=== PATIENT | female | born 1950 | race Caucasian/White ===

== ENCOUNTER 2016-10-04 07:49 | Emergency (ER) | payer MEDICARE, OTHER ==
[~2016-10-04] VITALS: Ht 162.6 cm; Wt 61.2 kg
[2016-10-04] MEDS ORDERED: IPRATROPIU0.2 MG/1 M INH (08:28)
[2016-10-04] MEDS ORDERED: DIAZEPAM10 MG PO (08:28)
[2016-10-04] MEDS ORDERED: ATENOLOL50 MG PO (08:29)
[2016-10-04] MEDS ORDERED: BUPROPION HCL100 MG PO (08:29)
[2016-10-04] MEDS ORDERED: OMEPRAZOLE20 MG PO (08:29)
[2016-10-04] MEDS ORDERED: EZETIMIBE10 MG PO (08:30)
[2016-10-04] MEDS ORDERED: FOLIC ACID1 MG PO (08:30)
[2016-10-04] MEDS ORDERED: RANITIDINE HCL150 MG PO (08:30)
[2016-10-04] MEDS ORDERED: ANUSOL-HC25 MG PR (09:39)
== END 2016-10-04 10:06 | disposition home or self-care (01) ==
LOC: ED 07:49
DX: R10.30 Lower abdominal pain, unspecified (principal); K62.89 Other specified diseases of anus and rectum; Z88.1 Allergy status to other antibiotic agents; Z91.013 Allergy to seafood; Z79.899 Other long term (current) drug therapy
CPT/HCPCS: 74177; 80053; 81001; 85025; 96374; 96375; 99284; J1170; J2405; Q9967

== ENCOUNTER 2024-12-21 06:42 | Inpatient (IN) | payer MEDICARE, OTHER ==
[~2024-12-21] VITALS: Ht 162.6 cm; Wt 93.5 kg
[~2024-12-21 06:42] MED LIST: ADVAIR 250-501 EACH INH; ANUSOL-HC25 MG PR; ATENOLOL50 MG PO; BUPROPION HCL100 MG PO; COMBIVENT RESPIM4 GM INH; DIAZEPAM10 MG PO; ECOTRIN325 MG PO; EZETIMIBE10 MG PO; FOLIC ACID1 MG PO; INCRUSE ELLI62.5 MCG IH; IPRATROPIU0.2 MG/1 M INH; LEVALBUTEROL TA15 GM; MULTI VITAMIN1 EACH PO; OMEPRAZOLE20 MG PO; OSTERA TABLET1 EACH PO; RANITIDINE HCL150 MG PO; TORSEMIDE5 MG PO; TRELEGY ELLIPT1 EACH INH
[2024-12-21] MEDS ORDERED: ALBUTEROL/IPRATROPIUM 3 ML NEB INH ONE ×2 (07:00→08:15)
[2024-12-21] MEDS ORDERED: LORazepam 2 MG/ML VIAL IV ONE ×2 (07:15→08:00)
[2024-12-21 07:32] LABS: BASOPHILS 0.7 % (0.1-1.2); EOSINOPHILS 0.7 % (0.7-5.8); LYMPHOCYTES 22.7 % (19.3-51.7); MCH 30.3 PG (25.6-32.2); MCHC 32.2 g/dL (32.2-35.5); MCV 94.1 fL (79.4-94.8); MONOCYTES 7.1 % (4.7-12.5); NEUTROPHILS 68.2 % (34.0-71.1); RBC 3.93 M/uL (3.93-5.22)
[2024-12-21 07:43] LABS: LACTIC ACID, BLOOD 2.2 mmol/L (0.4-2.0)
[2024-12-21] MEDS ORDERED: AZITHROMYCIN 500 MG in DEXTROSE 5% 250 ML IV ONE (07:45)
[2024-12-21 07:57] LABS: ALT (SGPT) 26.0 U/L (14-59); AST (SGOT) 22.0 U/L (15-37); GLOMERULAR FILTRATION RATE,EST 55.0 mL/min (>60); PROTEIN, TOTAL 7.4 g/dL (6.4-8.2); UREA NITROGEN 16.0 mg/dL (7-18)
[2024-12-21] MEDS ORDERED: SODIUM CHLORIDE 0.9% 1,000 ML IV PRN (08:15)
[2024-12-21] MEDS ORDERED: PANTOPRAZOLE SODIUM 40 MG TABEC PO SCH (12:13)
[2024-12-21] MEDS ORDERED: LACTATED RINGER'S 1,000 ML IV SCH (12:15)
[2024-12-21] MEDS ORDERED: ACETAMINOPHEN 325 MG TAB PO PRN (12:15)
--- NOTE | 2024-12-21 12:40 | NUR ---
PATIENT ARRIVED TO DEPARTMENT VIA STRETCHER. PATIENT ON 5L OXYMASK. PATIENT NOTED TO HAVE INCREASED WOB AND STATES "I CANNOT BREATHE". THIS RN, RT, AND CCU STAFF IN ROOM TO ASSIST PATIENT OVER TO HOSPITAL BED AND PATIENT PLACED ON BIPAP. PATIENT TOLERATING BIPAP WELL. THIS RN AND ONEYDA RN REMAIN IN ROOM. PATIENTS LAMONT PRESENT IN ROOM
--- NOTE | 2024-12-21 12:54 | NUR ---
HANDOFF REPORT FROM DENYS PARHAM. ALL QUESTIONS ANSWERED. PATIENT SITTING UP IN BED, BIPAP IN PLACE. SPO2 98%. BIPAP SETTINGS PER RT. AT BEDSIDE
[2024-12-21 13:13] VITALS: BP 146/81
[2024-12-21] MEDS ORDERED: D3-200050 MCG PO (13:29)
[2024-12-21] MEDS ORDERED: BIOTIN5 MG PO (13:29)
[2024-12-21] MEDS ORDERED: TYLENOL325 MG PO (13:30)
--- NOTE | 2024-12-21 13:30 | NUR ---
PATIENT ASSESSMENT COMPLETE. PATIENT ALERT AND ORIENTED. HR 90'S-100'S, NSR TO ST. PATIENT NOW ON 5 L OXYMASK. PATIENT NOTED TO BE TACHYPNEIC AND BUT WOB HAS IMPROVED AFTER BIPAP EVIDENCED BY EVEN RESPIRATIONS AND NO USE OF ACCESSORY MUSCLES. BOWEL TONES ACTIVE, PATIENT STATES LAST BM WAS ABOUT 4 DAYS AGO. PATIENT STATES CHRONIC NUMBNESS AND TINGLING IN BILATERAL TOES. SKIN NOTED TO BE DRY. L. AC AND R. AC IV SITES INTACT AND WNL. VITAL SIGNS STABLE. PATIENT SITTING UP IN BED. NO EVIDENCE OF ACUTE DISTRESS NOTED. PATIENT REQUESTS TO REMAIN ON OXYMASK. PATIENT ABLE TO TALK AND FORM COMPLETE SENTENCES. THIS RN REMAINS IN ROOM
--- NOTE | 2024-12-21 14:07 | NUR ---
PATIENT SITTING UP IN BED. RR EVEN AND UNLABORED. SPO2 97% ON 5 L NC. IVF INFUSING PER EMAR. PATIENT EATING MEAL. NO EVIDENCE OF ACUTE DISTRESS NOTED, PATIENT UPDATED ON POC. CALL LIGHT IN REACH.
--- NOTE | 2024-12-21 15:00 | NUR ---
THIS RN AND DENYS JONES IN ROOM. PATIENT ASSISTED ONTO BEDPAN. WHILE ASSISTING ONTO BEDPAN, PATIENTS WOB INCREASED. PATIENT PLACED ON BIPAP AND SAT UP IN HIGH FOWLERS. THIS RN AND ROBERT RN REMAIN IN ROOM
--- NOTE | 2024-12-21 15:12 | NUR ---
INTO ROOM TO ANSWER CALL LIGHT. PT NEEDING TO HAVE BOWEL MOVEMENT. PT ABLE TO ROLL SELF IN BED SOME, BED BURKETT PLACED. PT BEGAN REPORTING SHOB WITH MOVEMENT, PLACED BACK ON BIPAP. PT TOLERATING WELL, 95%. BED BURKETT REMOVED, PT HAD SMALL AMOUNT OF BROWN SOFT BM. NEFTALI-CARE COMPLETED AND CLEAN BRIEF PLACED. PT SITTING UP IN BED, CALL LIGHT IN REACH. AT BEDSIDE
--- NOTE | 2024-12-21 15:18 | NUR ---
PATIENT REMAINS ON BIPAP. PATIENT ABLE TO HAVE X1 SMALL SOFT BM AND X1 UNMEASURED VOID THAT APPEARS CLEAR AND YELLOW. NEFTALI CARE COMPLETE. PUREWICK, BRIEF, AND REGINA PAD PLACED. PATIENT REPOSITIONED IN BED AND PLACED IN SEMI FOWLERS. PATIENT UPDATED ON POC. AT BEDSIDE. REST PROMOTED. CALL LIGHT IN REACH
[2024-12-21 15:30] VITALS: BP 164/72
[2024-12-21 16:00] VITALS: BP 116/93
[2024-12-21] MEDS ORDERED: ALBUTEROL SULFATE 0.083% 3 ML VIAL INH PRN (16:30)
--- NOTE | 2024-12-21 17:45 | NUR ---
THIS RN IN ROOM. PATIENT BEGINS TO HAVE COUGHING FIT. PATIENT SAT UP IN HIGH FOWLERS. THIS RN REMAINS WITH PATIENT. PATIENT PRODUCES THICK SECRETIONS WITH NO EVIDENCE OF EMESIS. PATIENT STATES THAT A "SPECK OF SOME FOOD" MADE HER COUGH START. THIS RN AND ONEYDA MCFARLANE AT BEDSIDE. AFTER SECRETIONS ARE CLEARED, PATIENT PLACED ON BIPAP AT 40% FIO2. SPO2 NOW 97%. THIS RN REMAINS AT BEDSIDE.
[2024-12-21 18:00] VITALS: BP 176/70
[2024-12-21] MEDS ORDERED: GUAIFENESIN/DEXTROMETHORPHAN 5 ML SYRUP PO PRN (18:00)
--- NOTE | 2024-12-21 18:04 | NUR ---
THIS RN REMAINS IN ROOM. DENYS CALL IN ROOM. PATIENT REMAINS ON BIPAP AT 30% FIO2, SPO2 95%. PATIENT NPO AT THIS TIME PER DR. JACKSON VERBAL ORDER. PATIENT AND PATIENT UPDATED ON POC. PATIENT VERBALIZES UNDERSTANDING.
--- NOTE | 2024-12-21 18:45 | NUR ---
PATIENT MOVED TO CCU RM 130 D/T BEING PLACED ON PRECAUTIONS FOR TB R/O. PATIENT NOTIFIED AND PRESENT IN ROOM AT THIS TIME. ALL BELONGINGS MOVED WITH PATIENT. VITAL SIGNS STABLE. NO EVIDENCE OF ACUTE DISTRESS.
--- NOTE | 2024-12-21 19:08 | NUR ---
PATIENT RESTING IN BED. PATIENT ON BIPAP. NO EVIDENCE OF ACUTE DISTRESS NOTED. CALL LIGHT IN REACH, AT BEDSIDE
[2024-12-21] MEDS ORDERED: ARFORMOTEROL TARTRATE 15 MCG/2 ML VIAL INH SCH (20:00)
[2024-12-21] MEDS ORDERED: IPRATROPIUM BROMIDE 2.5 ML VIAL INH SCH (20:00)
[2024-12-21] MEDS ORDERED: BUDESONIDE 0.5 MG/2 ML VIAL INH SCH (20:00)
[2024-12-21 20:15] LABS: CORONAVIRUS COVID-19 AG NEGATIVE (NEGATIVE)
[2024-12-21 20:18] VITALS: BP 111/78
[2024-12-21] MEDS ORDERED: MELATONIN 3 MG TAB PO PRN (21:00)
[2024-12-21] MEDS ORDERED: ENOXAPARIN SODIUM 40 MG/0.4 ML SYR SUB-Q SCH (21:00)
[2024-12-21] MEDS ORDERED: LORazepam 2 MG/ML VIAL IV PRN (21:15)
[2024-12-21] MEDS ORDERED: GUAIFENESIN/CODEINE 5 ML UDC PO PRN (21:15)
[2024-12-21 22:38] VITALS: BP 165/62
--- NOTE | 2024-12-21 23:33 | NUR ---
CALLED TO UPDATE AND REQUEST NEW ORDERS. PATIENT IS VERY ANXIOUS ABOUT SHORTNESS OF BREATH AND BIPAP, ALSO REPORTS PAIN AT ABDOMEN AND CHEST RIBS/MUSCLES FROM COUGHING. NEW ORDERS RECEIVED, SEE EMAR.
[2024-12-22] VITALS (9 sets, daily range): BP systolic 113–153; BP diastolic 57–99
--- NOTE | 2024-12-22 05:18 | NUR ---
PATIENT ALERT AND ORIENTED. SHE WANTS THE BIPAP OFF FOR A BREAK, ONCE OFF, SEVERE ANXIETY SYMPTOMS, TACHYPNIC, GRIPPING THE BED RAILS AND PULLING HERSELF FORWARD, EYES WIDE OPEN. SHE SAID SHE HAS NOT FELT THIS ANXIOUS SINCE SHE FIRST CAME TO THE HOSPITAL. ATIVAN PRN ADMINISTERED FOR ANXIETY. DURING SEVERE ANXIETY OXYGEN SATURATION DROPPED LOW 79% ON 5L N.C., WITH RN INSTRUCTING AT BEDSIDE TO ASSOCIATE ACCOUNT EXECUTIVE SLOW DEEP BREATHS, PATIENT RETURNED TO 93% OXYGEN SATURATION. ONCE ATIVAN ADMINISTERED OXYGEN SATURATION 97%.
[2024-12-22 05:46] LABS: BASOPHILS 0.2 % (0.1-1.2); EOSINOPHILS 0 % (0.7-5.8); LYMPHOCYTES 10.9 % (19.3-51.7); MCH 30.5 PG (25.6-32.2); MCHC 32.5 g/dL (32.2-35.5); MCV 93.9 fL (79.4-94.8); MONOCYTES 5.0 % (4.7-12.5); NEUTROPHILS 83.1 % (34.0-71.1); RBC 3.44 M/uL (3.93-5.22)
--- NOTE | 2024-12-22 06:03 | NUR ---
ROUNDING THIS AM TO CHANGE PURWICK AND CHANGE DEPENDS, WHITE CHUCKS AND LINEN/GOWN. PATIENT HAS GOOD BED MOBILITY, ABLE TO TURN SIDE TO SIDE, PATIENT HAD URINE INCONT. STOOL INCONT., SHE TOLERATED ACTIVITY WELL. ANXIETY WELL MANAGED AT THIS TIME. CURRENTLY 96% OXYGEN SATURATION ON 4L N.C.
[2024-12-22 06:13] LABS: ALT (SGPT) 26.0 U/L (14-59); AST (SGOT) 25.0 U/L (15-37); GLOMERULAR FILTRATION RATE,EST 80.0 mL/min (>60); PROTEIN, TOTAL 6.8 g/dL (6.4-8.2); UREA NITROGEN 11.0 mg/dL (7-18)
--- NOTE | 2024-12-22 07:40 | EKG ---
[facility] [address] [facility] [place] [address] Signed Sinus tachycardia Nonspecific ST and T wave abnormality Abnormal ECG When compared with ECG of 03-APR-2022 17:03, Vent. rate has increased BY 45 BPM Confirmed by Anneliese Jackson DO ([id number]) on 12/22/2024 7:40:38 AM Electronically Signed By: ANNELIESE JACKSON DO 12/22/24 0740 PATIENT NAME: LISETH TEJADA Electrocardiogram DATE OF : 48 PHYSICIAN: ANNELIESE JACKSON DO REPORT #: [id number] REPORT IS CONFIDENTIAL AND NOT TO BE RELEASED WITHOUT AUTHORIZATION
--- NOTE | 2024-12-22 07:41 | EKG ---
[facility] [address] [facility] [place] [address] \T\ T wave abnormality, consider anterior ischemia Abnormal ECG When compared with ECG of 21-DEC-2024 06:48, (Unconfirmed) T wave inversion now evident in Anterior leads Confirmed by Jacinto Jackson DO ([id number]) on 12/22/2024 7:40:53 AM Electronically Signed By: JACINTO JACKSON DO 12/22/24 0741 PATIENT NAME: MARIPOSA ALLENLISETH GARCÍA Electrocardiogram DATE OF : 48 PHYSICIAN: JACINTO JACKSON DO REPORT #: [id number] REPORT IS CONFIDENTIAL AND NOT TO BE RELEASED WITHOUT AUTHORIZATION
[2024-12-22] MEDS ORDERED: ALBUTEROL/IPRATROPIUM 3 ML NEB INH SCH (08:00)
[2024-12-22] MEDS ORDERED: ASPIRIN 325 MG TAB PO SCH (08:00)
[2024-12-22] MEDS ORDERED: AZITHROMYCIN 250 MG TAB PO SCH (09:00)
[2024-12-22] MEDS ORDERED: TORSEMIDE 5 MG TAB PO SCH (09:00)
[2024-12-22] MEDS ORDERED: predniSONE 20 MG TAB PO SCH (09:00)
--- NOTE | 2024-12-22 09:30 | NUR ---
PHYSICAL THERAPY GOT PT UP TO THE CHAIR THIS AM. PT WAS ABLE TO BRUSH HER TEETH AND TAKE HER AM MEDICATIONS WITH SIPS OF WATER. PT REMAINS NPO AT THIS TIME. PTS HAS BEEN INTO SEE PT THIS MORNING AND THEN LEFT FOR WORK.
--- NOTE | 2024-12-22 11:15 | NUR ---
PT BACK TO BED, CPAP INPLACE BEFORE PT OUT OF THE CHAIR, PT HAS A REASON WHY SHE CAN'T DO THING IN HER CARE. "NOT ENOUGH OXYGEN, NOT ENOUGH HELP AT HOME, JUST DONT FEEL LIKE IT" PT HAS PUR WICK INPLACE.
--- NOTE | 2024-12-22 11:40 | NUR ---
Spoke with pt and spouse. Pt lives in a home with few steps. She uses a walker and wc. Pt uses 02 up to 5l, currently on 4 L this am. Spouse does the HH tasks shopping, cooking. Pt plans on dc to home. Denies financial or safety concerns. Pt waiting on labs.
[2024-12-22] MEDS ORDERED: PHARMACY RENAL DOSE ADJUSTMENT 1 DOSE MISC PO SCH (12:00)
--- NOTE | 2024-12-22 13:54 | NUR ---
PT IN BED WITH 4L'S NC INPLACE. AT BEDSIDE, PT PUR WICK CHANGED AT THIS TIME AND ATTENDS. HAD 200MLS CONCERATED URINE AND A WET ATTENDS. PT BUTT SKIN IS PEELING, CLAUDIA CREAM APPLIED. PT IS HUNGERY, SOMA JELLOW AND ICE WATER GIVEN. PT WAS NPO DUE TO SOB WHICH HAS IMPROVED AT THIS TIME. EXPLAINED TO PT TO GO SLOW AND TAKE HER TIME.
--- NOTE | 2024-12-22 14:14 | NUR ---
UR CLINICAL REVIEW: 2 MN FOR [facility]ERSALUS-[facility] MEETS INPT FOR SEPSIS SECONDARY TO PNEUMONIA WITH GREATER O2 DEMAND, NEED FOR IV ABX AND SERIAL MONITORING. MEDICARE INPT 12/21/24 @ 1213 ORDER MATCHES REG NO AUTH REQUIRED PER MEDICARE GUIDELINES DISCHARGE TO HOME WHEN STABLE
[2024-12-22] MEDS ORDERED: FOLIC ACID1 MG PO (16:33)
[2024-12-22] MEDS ORDERED: NITROGLYCERIN0.4 MG SL (17:32)
[2024-12-22] MEDS ORDERED: PREDNISONE10 MG PO (17:32)
--- NOTE | 2024-12-22 17:39 | NUR ---
PT ATE FAIR AT THIS TIME. REMAINS IN THE ROOM AND DOES NOT WEAR A MASK.
[2024-12-22] MEDS ORDERED: ANTIFUNGAL113 GM TOP (17:43)
--- NOTE | 2024-12-22 17:44 | NUR ---
medications reconciled PCP notes
--- NOTE | 2024-12-22 18:37 | NUR ---
PURE WICK CHANGED, ATTEND CHANGED ALONG WITH THE CHUCKS CHNAGED. PT IS ABLE TO LIFT HER BOTTON AND TURN FROM SIDE TO SIDE.
[2024-12-22] MEDS ORDERED: BUDESONIDE 0.5 MG/2 ML VIAL INH SCH (20:00)
--- NOTE | 2024-12-22 20:21 | NUR ---
PATIENT SITTING UP ALERT AND ORIENTED IN BED. NO DISTRESS NOTED, ON N.C. AT 5L O2
--- NOTE | 2024-12-22 20:30 | NUR ---
PATIENT RESTING IN BED ALERT AND ORIENTED, THIS RN ROUNDING TO DO ASSESSMENT AND HS MEDICATIONS. PATIENT REPORTS SHE DOES NOT FEEL GOOD, THIS RN ASSURED HER, SHE IS CLINICALLY SHOWING SOME IMPROVEMENT, WITH WORK OF BREATHING AND OXYGEN DEMANDS COMPARED TO WHEN ADMITTED. SHE REPORT SHE FEELS ANXIOUS ABOUT THE BIPAP HAS SOME RIB AND MUSCLE PAIN FROM ALL THE COUGHING, THIS RN DISCUSSED PLAN OF CARE FOR TONIGHT AND HAVE PRN MEDICATIONS TO MANAGE ANXIETY AND PAIN.
[2024-12-23] VITALS (17 sets, daily range): BP systolic 111–149; BP diastolic 49–98
--- NOTE | 2024-12-23 00:54 | NUR ---
PATIENT RESTING QUIETLY IN BED, BIPAP ON, SHE IS TOLERATING WELL. ASSESSMENT COMPLETE. CALL LIGHT IN REACH.
[2024-12-23 05:35] LABS: BASOPHILS 0.1 % (0.1-1.2); EOSINOPHILS 0 % (0.7-5.8); LYMPHOCYTES 9.6 % (19.3-51.7); MCH 30.1 PG (25.6-32.2); MCHC 31.5 g/dL (32.2-35.5); MCV 95.6 fL (79.4-94.8); MONOCYTES 6.7 % (4.7-12.5); NEUTROPHILS 82.8 % (34.0-71.1); RBC 3.19 M/uL (3.93-5.22)
[2024-12-23 05:51] LABS: ALT (SGPT) 31.0 U/L (14-59); AST (SGOT) 28.0 U/L (15-37); GLOMERULAR FILTRATION RATE,EST 84.0 mL/min (>60); PROTEIN, TOTAL 6.3 g/dL (6.4-8.2); UREA NITROGEN 19.0 mg/dL (7-18)
--- NOTE | 2024-12-23 05:54 | NUR ---
PATIENT IS SITTING UP IN BED, USING HER CELL PHONE
--- NOTE | 2024-12-23 06:25 | NUR ---
PATIENT ALERT AND ORIENTED, PATIENT CONTINUES TO HAVE INTERMITTEN COUGHING, NON-PRODUCTIVE, SHE REPORTS MUSCLE PAIN ABD AND RIBS FROM THE COUGHING, ROBITUSSIN AC ADMINISTERED AT THIS TIME PRN. CHANGED HER PURWICK AND EMPTIED SUCTION CANISTER FOR 200ML. WARM BLANKET PROVIDED, FRESH ICE WATER, NO FURTHER REQUESTS AT THIS TIME, CALL LIGHT IN REACH.
[2024-12-23] MEDS ORDERED: NITROGLYCERIN 0.4 MG SUBL ONE (07:13)
--- NOTE | 2024-12-23 07:20 | NUR ---
PT C/O CP STAT EGK AND NITRO SL GIVEN ASEE VS FLOWSHEET 0721 CP 1/10 BACK PAIN CRAMPS LIKE PAIN AND GOES ACROSS HER BACK AND HEAVYNESS ON HER CHEST 0725 LAB SAMPLE OBTAINED CP 1/10 LEAD WEIGHT HEAVYNESS ON CHEST 0729 EDEMA 1= IN BILT LEGS, PASTORAL CARE PRESENT 0733 325 ASA GIVEN PT CHEWED IT AT THIS TIME 0/10 CP PAIN BUT HEAVYNESS PRESENT AND BACK PAIN 2 TO 3 0736 1 NITRO SL GIVEN PER DR DE LOS SANTOS 0740 HEAVNESS/BACK PAIN HAS DECREASED BUT STILL THERE AND HEART RATE INCREASED R/T NEB TX
[2024-12-23] MEDS ORDERED: NITROGLYCERIN 0.4 MG SUBL SL PRN (07:30)
--- NOTE | 2024-12-23 07:52 | NUR ---
dr caldwell, pt contioues to have back pain "still not normal" and chest heaveyness see flow sheet for VS [address] Ferrer changed VS to Q15 0822 Pt pain in left breast "hard to tell" 03/05 chest pain. 0830 all am medications given and PT will be only allow sips till it is decided if transfered to a high level of care for cardio. Pt and understand all the information that has been given.
[2024-12-23] MEDS ORDERED: IPRATROPIUM BROMIDE 2.5 ML VIAL INH SCH (08:00)
--- NOTE | 2024-12-23 08:16 | NUR ---
CALL TO DR DE LOS SANTOS TO NOTIFY OF TROPONIN INCREASE FROM 12 TO 14, NEW ORDER TO REPEAT LAB IN 2 HOURS AT 930 AM.
--- NOTE | 2024-12-23 08:41 | NUR ---
PT C/O PAIN IN THE LT LOWER IV SITE, CHANGED ABX TO LT AC SITE, BOTH FLUSH WELL AND SHE FEELS THAT IT IS COLD WHEN FLUSHING WITH SALINE. SO CHANGED ABX TO THE LT AC AREA IV.
[2024-12-23] MEDS ORDERED: MICONAZOLE NITRATE 1 EA BTL TOP SCH (09:00)
--- NOTE | 2024-12-23 10:04 | NUR ---
DR DE LOS SANTOS NOTIFIED OF L Tt level INCREASED TO 15.8 AT THIS TIME. PT VERY VAGE ABOUT CP AND BACK PAIN. STILL HAS CP AND BACK PAIN BUT NOT BAD. DID NOT GIVEN IT A NUMBER AT THIS TIME ON SCALE 0/10. PT MAKES EXCUSES ABOUT HER HEALTH AND WHY SHE IS IN THE SAME SHE IS IN AT THIS TIME. "I DON'T LIKE TO TAKE STEROIDS IT MAKES MY FACE FAT" "I DONT LIKE TO COMPLETE MY NEB TX'S ALL THE TIME DUE TO THEY MAKE ME COUGH"
--- NOTE | 2024-12-23 10:08 | NUR ---
PT TALKING ON PHONE, DID NOT HANG UP WHEN SHE WAS ASKING QUESTIONS AND TALKING TO BOTH OF US AT THE SAME TIME.
--- NOTE | 2024-12-23 10:19 | NUR ---
pt appears to be sleeping eyes are slosed resp even and unlaborded at this time spo2 98% on 4l's nc. heart rate 78 at this time.
[2024-12-23] MEDS ORDERED: ISOSORBIDE MONONITRATE 30 MG TABCR PO SCH (11:00)
--- NOTE | 2024-12-23 11:15 | NUR ---
PRN NEB TX GIVEN DUE TO INCREASED SOB WITH COUGHING. PT SITTING UP IN THE CHAIR. ALSO GAVE COUGH ROBITIUSSION AC. PT REMAINS ON O2 AT 4L'S NC.
--- NOTE | 2024-12-23 11:40 | NUR ---
In to speak with Lorri. She is on the phone. She stopped her visit, I asked if she has any needs and she denies. States she has books and magazines she has not looked at. No needs.
--- NOTE | 2024-12-23 12:18 | NUR ---
PT IN ROOM CAME OUT AND ASKED WHEN PT CAN GO BACK TO BED, EXPLAINED AFTER SHE EATS LUNCH.
--- NOTE | 2024-12-23 13:19 | NUR ---
PT BACK TO BED AT THIS TIME, DID WELL WITH PIVOT TRANSFER WITH FFW. SPO2 DECREASED TO 86% ON 4L'S NC. PT SAT AT THE EDGE OF THE BED TO RECOVER AND DEEP BREATH THROUGH NOSE AND OUT THROUGH HER MOUTH. PT DID WELL. AFTER SPO2 UP TO 96% ON 4L'S NC SUNG PT LEGS INTO THE BED AND PLACED PURE WICK. PT URINE REMAINS YELLOW IN COLOR. PT ASKING QUESTION ON ABOUT GOING HOME AND WHEN THAT WOULD HAPPEN? EXPLAINED TO PT THAT WE WILL SEE WHAT HER 15:30 Tt LABS SHOW AND GO FROM THERE. PT WANTS TO GO HOME AND WOULD HOPE TO BE HOME BY THIS WEEKEND. 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
--- NOTE | 2024-12-23 14:13 | NUR ---
DC REVIEW: CONTINUE WITH NEED FOR BIPAP AT TIMES, R/O TB, IV ANTIBIOTICS, STEROIDS, CARDIAC MONITORING ADD: [place], FURTHER TREATMENT NEEDED CARDIOLOGY CONSULTED FOR CHEST PAIN THIS AM.
--- NOTE | 2024-12-23 14:36 | NUR ---
PT APPEARS TO BE SLEEPING AT THIS TIME IN BED. HOB AT 60% AT THIS TIME SPO2 100% ON 4L'S. RESP EVEN AND UNLABORED.
--- NOTE | 2024-12-23 15:20 | NUR ---
PT AWAKE TAKING PO WELL, PT C/O PAIN IN HER CHEST 04/05 WITH CONTIOUED HEAVEYNESS IN HER CHEST AND BACK. BUT PT CONTIOUES TO PLAY IT NO BIG DEAL. PT STATES 'I REALEY WANT TO GO HOME FOR THE WEEKEND." EXPLAINED AFTER THE NEXT LAB SAMKARSTEN WE CAN MAKE A BETTER PLAN. PT ALSO C/O FEELING LIKE THEIR ARE PEOPLE WORKING ON HER. EXPLAIND THAT HER BED MOVES AT TIMES TO KEEP HER PRESSURE TO NOT RECEIVE SORE ON HER SKIN. AND THAT THEIR ARE DIFFERENT NOISES IN THE UNIT.
--- NOTE | 2024-12-23 15:29 | NUR ---
LAB HERE TO OBTAIN BLOOD SAMPLE
--- NOTE | 2024-12-23 16:14 | NUR ---
PRKalyn PUENTE TX GIVEN AT THIS TIME, PT C/O SOB AND THEN WAS WANTING TO KNOW WHAT WAS GOING TO HAPPEN NEXT. ASK PT WHAT SHE MENT BE THIS, WELL AM I GOING HOME NOW OR DO I STAY HERE? [id number] THAT SHE WOULD MOST LIKLEY STAY HERE TILL SHE GOES HOME. UNLESS THE DOCTOR DECIDES ON SOMETHING DIFFERENT.
--- NOTE | 2024-12-23 16:54 | NUR ---
PT RETURNED THIS EVENING, PT SET UP FOR DINNER IN BED, CALL LIGHT WITHIN REACH. WHEN NEB TX FINISHED PT TOOK OFF. WITH ACTIVITY IN BED TRYING TO EAT SPO2 DECREASES TO 88-89% ON 4L'S. BUT ALSO PT IS MOVING HAND THAT SPO2 MONITOR IS ON.
--- NOTE | 2024-12-23 17:24 | NUR ---
PT ASKED FOR ICE CREAM OBTAIN A CUP OF ICE CREAM FOR PT. SHE IS STILL WORKING ON DINNER AT THIS TIME ALSO.
--- NOTE | 2024-12-23 18:27 | NUR ---
PT ATTENDS CHANGED AND PURE WICK DRAINED 150MLS YELLOW URINE. PT IS ABLE TO MOVED ABOUT THE BED. BUT SHE DID DECREASE HER SPO2 TO 83% AND TOOK A GOOD 5 MINUTES TO RECOVER AT THIS TIME, BUT ALSO SHE TALKED THE WHOLE TIME AND WHEN ASKED TO JUST BREATH SHE KEEP TALKING. SHE DID RECOVER, BUT TOOK LONGER WHEN TALKING. PT C/O ITCHING AND PAIN IF HER FOLDS IN HER NEFTALI AREA, PLACED BARRIER CREAM IN THE FOLDS FOR PT AT THIS TIME.
--- NOTE | 2024-12-23 20:30 | NUR ---
PATIENT SITTING UPRIGHT IN BED. VS STABLE. DENIED ANY NEEDS OR CONCERNS. CALL LIGHT IN REACH.
--- NOTE | 2024-12-23 21:22 | NUR ---
PATIENT PROVIDED SCHEDULED MEDS. PATIENT IS AAOX4. DENIED FEELING SOB. VS STABLE. PATIENT REPORTS RIB PAIN AND MUSCLE SORENESS FROM COUGHING. PATIENT REQUESTING A "MUSCLE RELAXER". DISCUSSED WITH AND RECEIVED ORDERS FOR PRN FLEXARIL; SEE EMAR. VERIFIED VIA REPEAT BACK METHOD.
[2024-12-23] MEDS ORDERED: CYCLOBENZAPRINE HCL 10 MG TAB PO PRN (21:30)
--- NOTE | 2024-12-23 22:15 | NUR ---
PATIENT REQUESTING AN DUPDATE ON HER VS; WHICH WAS PROVIDED. TOLERATING 5L NC. VS STABLE. PATIENT DENIED FEELING SOB OR WANTING A NEB TREATMENT. PATIENT ALSO DOES NOT PLAN TO WEAR BIPAP TONIGHT. REPORTS SOME IMPROVEMENT RIB PAIN. LIGHTS DIMMED PER REQUEST. CALL LIGHT IN REACH.
[2024-12-24] VITALS (18 sets, daily range): BP systolic 137–172; BP diastolic 59–94
--- NOTE | 2024-12-24 00:15 | NUR ---
PATIENT APPEARS RESTFUL. TOLERATING 5L NC. LUNG SOUNDS UNCHANGED. CALL LIGHT IN REACH.
--- NOTE | 2024-12-24 03:00 | NUR ---
PATIENT DENIES FEELING SOB. VS STABLE. CALL LIGHT IN REACH.
[2024-12-24 05:30] LABS: BASOPHILS 0.3 % (0.1-1.2); EOSINOPHILS 0.1 % (0.7-5.8); LYMPHOCYTES 20.0 % (19.3-51.7); MCH 30.3 PG (25.6-32.2); MCHC 32.0 g/dL (32.2-35.5); MCV 94.7 fL (79.4-94.8); MONOCYTES 8.5 % (4.7-12.5); NEUTROPHILS 68.9 % (34.0-71.1); RBC 3.40 M/uL (3.93-5.22)
[2024-12-24 05:34] LABS: QUANTIFERON MITOGEN MINUS NIL 9.99 IU/mL (()); QUANTIFERON NIL 0.01 IU/mL (()); QUANTIFERON PLUS TB1 MINUS NIL 0.00 IU/mL (<=0.34); QUANTIFERON PLUS TB2 MINUS NIL 0.00 IU/mL (<=0.34); QUANTIFERON TB GOLD PLUS Negative (Negative)
[2024-12-24 05:45] LABS: ALT (SGPT) 33.0 U/L (14-59); AST (SGOT) 27.0 U/L (15-37); GLOMERULAR FILTRATION RATE,EST 66.0 mL/min (>60); PROTEIN, TOTAL 6.1 g/dL (6.4-8.2); UREA NITROGEN 24.0 mg/dL (7-18)
--- NOTE | 2024-12-24 06:00 | NUR ---
patient attends and pure wic changed at this time. patient toleraitng 5L nc. denied feeling sob. denied wanting a neb treatment. patient able to assist in repositioning herself and lifting hips to be changed. patient encouraged to attempt to use bsc; patient reports she is unable to get up to the bsc at this time. fresh ice water provided. call light in reach.
--- NOTE | 2024-12-24 06:01 | EKG ---
[facility] [address] [facility] [place], [place] [address] S[address] Normal sinus rhythm [address] \T\ T wave abnormality, consider anterior ischemia Abnormal ECG When compared with ECG of 21-DEC-2024 08:00, No significant change was found Confirmed by KVNG DE LOS SANTOS MD ([id number]) on 12/24/2024 6:01:07 AM Electronically Signed By: KVNG DE LOS SANTOS 12/24/24 0601 PATIENT NAME: LISETH TEJADA Electrocardiogram DATE OF : 48 PHYSICIAN: KVNG DE LOS SANTOS REPORT #: [id number] REPORT IS CONFIDENTIAL AND NOT TO BE RELEASED WITHOUT AUTHORIZATION
--- NOTE | 2024-12-24 08:24 | NUR ---
REPORT RECEIVED FROM DENYS JONES. pt SITTING UP IN BED, 5L OXYGEN BY NC IN PLACE. pt ANXIOUS REGARDING PLAN OF CARE. EDUCATED ON PLAN OF CARE, SCHEDULED AND PRN MEDICATIONS, PT, ACTIVITY INCREASE FOR DAY. pt AGREEABLE. DENIES UP TO CHAIR AT THIS TIME. BREAKFAST ON TRAY TABLE. CALL LIGHT IN REACH.
--- NOTE | 2024-12-24 09:00 | NUR ---
PATIENT IS LAYING IN BED. PATIENT WAS PROVIDED WITH A WARM WASHCLOTH. CALL LIGHT IS WITHIN REACH AND NO FURTHER NEEDS AT THIS TIME.
--- NOTE | 2024-12-24 09:41 | NUR ---
pt AWAKE RESTING IN BED. ASSESSMENT COMPLETE. LUNG SOUNDS CLEAR DIMINISHED THROUGHOUT, SOME COARSENESS AUSCULTATED MOHAMUD. 5L OXYGEN BY NC IN PLACE. IV SITE IN LEFT FA INFILTRATED, DC'D WNL. IV ANTIBIOTIC INFUSING L AC. pt IN ROOM WORKING WITH pt. 1PA WITH FWW.
--- NOTE | 2024-12-24 09:56 | NUR ---
GISSEL PT, IN ROOM WITH PATIENT. CURRENTLY RECOMMEND HOME HEALTH AND POTENTIALLY CARDIOPULMONARY REHAB FOR PATIENT. PATIENT IS OPEN TO HOME HEALTH. WILL SEND REFERRAL. PATIENT CHOICES PROVIDED. [facility] TO BE USED SO PATIENT CAN RECIEVE ALL THERAPIES NEEDED. WILL SEND REFERRAL WHEN PATIENT IS DISCHARGED.
--- NOTE | 2024-12-24 10:19 | NUR ---
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 ANXIOUS PULLING NGT OUT, CONGESTION. SWITCHED TO OXYMASK 6L, pt RECOVERS IN CHAIR AFTER AMBULATING TO RESTROOM DOOR 1P FWW WITH GAIT BELT. TITRATED BACK TO 5L OXYGEN BY OXYMASK, SPO2 WNL. HR UP TO 120-130S WITH AMBULATION. BACK IN CHAIR AT THIS TIME, LEGS ELEVATED. CALL LIGHT AND PERSONAL SUPPLIES WITHIN REACH.
--- NOTE | 2024-12-24 10:26 | NUR ---
AFTER WORKING FURTHER WITH PATIENT, PT RECOMMENDING SNF. IN TO DISCUSS SNF WITH PATIENT. SHE STATES SHE WILL NOT BE GOING TO A SNF. SHE STATES SHE FUNCTIONS BETTER AT HOME AND SHE IS WILLING TO DO HOME HEALTH INSTEAD.
--- NOTE | 2024-12-24 11:20 | NUR ---
pt ASSISTED FROM CHAIR SBA TO BSC FOR VOID AND LARGE FORMED SOFT BM. BACK TO BED 1PA FWW FOR LINE MANAGEMENT. GAIT STEADY. NEW ATTENDS ON. pt AGREEABLE TO HAVE ERIN CASTRO. ASSESSMENT COMPLETE. LUNG SOUNDS CLEAR THROUGHOUT ALL LEGS. 1+ EDEMA BLE, LEGS ELEVATED ON PILLOWS. CALL LIGHT AND PERSONAL SUPPLIES IN REACH. DENYS WALTON IN ROOM TO START NEW IV.
--- NOTE | 2024-12-24 11:51 | NUR ---
MD ROUNDING ON pt. UPDATED ON POSITIVE BLOOD CULTURES. NO NEW ORDERS RECEIVED.
--- NOTE | 2024-12-24 12:04 | NUR ---
STARTED NEW IV TO RIGHT WRIST, TOOK 3 ATTEMPTS, PT TOLERATED WELL. pT CONVERSANT, ALERT AND ORIENTED. OT NOW IN ROOM WORKING WITH PATIENT.
--- NOTE | 2024-12-24 12:35 | NUR ---
pt SITTING UP IN BED. LUNCH PROVIDED ON TRAY TABLE. OXYGEN SWITCHED TO 5L NC FOR pt TO EAT. SPO2 96%. CALL LIGHT IN REACH. IN ROOM.
--- NOTE | 2024-12-24 13:17 | NUR ---
REPORT RECEIVED FROM DENYS TALLEY. PATIENT IS LYING IN BED WITH HOB ELEVATED. PATIENT WITH EYES OPEN AND RESPIRATIONS ARE EVEN AND UNLABORED. PATIENT WITH THE NC IN PLACE. CALL LIGHT AND PERSONAL BELONGINGS ARE WITHIN REACH.
--- NOTE | 2024-12-24 14:14 | NUR ---
PATIENT IS LYING IN BED WITH HOB ELEVATED. PATIENT WITH EYES OPEN AND RESPIRATIONS ARE EVEN AND UNLABORED. NC IN PLACE. PATIENT IS LOOKING ON THEIR PHONE. PATIENT IS AT BEDSIDE. CALL LIGHT AND PERSONAL BELONGINGS ARE WITHIN REACH.
--- NOTE | 2024-12-24 15:44 | NUR ---
PATIENT ASSISTED OFF THE COMMODE AT THIS TIME WITH DENYS JIN. PATIENT VOIDED 350 ML YELLOW URINE. PATIENT IS NOW BACK IN BED ON 5 L NC. LUNCH TRAY REMOVED. HOB ELEVATED. PATIENT REMAINS AT BEDSIDE. PATIENT STATED NO FURTHER NEEDS AT THIS TIME. CALL LIGHT AND PERSONAL BELONGINGS ARE WITHIN REACH.
--- NOTE | 2024-12-24 16:16 | NUR ---
FULL ASSESSMENT COMPLETE AND DOCUMENTED IN THE CHART. PATIENT TURNED BACK TO 4L NC AFTER USING THE BEDSIDE COMMODE. PATIENT REPORTED PAIN 10/10 WHEN COUGHING. PATIENT HAD PRODUCTIVE COUGH OF THICK YELLOW SPUTUM. CARDIAC WITH NORMAL S1 AND S2. PATIENT IS REQUESTING FLEXERIL AND SOMETHING FOR COUGH. PATIENT REMAINS SITTING IN THE RECLINER AT BEDSIDE. PATIENT NAD FAMILY STATED NO FURTHER NEEDS AT THIST MARYJO. CALL LIGHT AND PERSONAL BELONGINGS ARE WITHIN REACH.
--- NOTE | 2024-12-24 17:15 | NUR ---
PATIENT IS LYING IN BED WITH HOB ELEVATED. PATIENT WITH EYES OPEN AND RESPIRATIONS ARE EVEN AND UNLABORED. NC IN PLACE. PATIENT IS EATING DINNER. CALL LIGHT AND PERSONAL BELONGINGS ARE WITHIN REACH.
--- NOTE | 2024-12-24 18:13 | NUR ---
VITAL SIGNS AND INTAKE/OUTPUT VALUES TAKEN AND DOCUMENTED IN THE CHART. PATIENT REPORTS HER PAIN HAS IMPROVED SINCE THE FLEXERIL AND THE ROBUTUSSIN. IV PUMP CLEARED OF INTAKE FLUIDS. DINNER TRAY REMOVED AT THIS TIME. FRESH ICE WATER PROVIDED. NC REMAINS IN PLACE ON 4 L NC. PATIENT STATED NO FURTHER NEEDS AT THIS TIME. CALL LIGHT AND PERSONAL BELONGINGS ARE WITHIN REACH.
--- NOTE | 2024-12-24 19:30 | NUR ---
REPORT RECEIVED FROM ARMANDO MCFARLANE.
--- NOTE | 2024-12-24 20:04 | NUR ---
LISETH (AKA: RUBIO) CAN USE THE CORNET +5 W/O DIFFICULTY. THE V60 BIPAP WAS DISCONTINUED. RUBOI STATES THAT SHE DOES HAVE A HOME NEBULIZER. RUBIO FEELS THAT THE BROVANA AND PULMICORT HELP HER BREATH BETTER THAN HER HOME INHALERS. SHE IS WONDERING IF SHE CAN BE DISCHARGED WITH A PRESCRIPTION FOR BROVANA AND PULMICORT. RT TOLD HER THAT IF SHE IS DISCHARGED WITH PRESCRIPTIONS FOR BROVANA AND PULMICORT, THE PRESCRIPTIONS WOULD ONLY BE FOR LIK 7 OR 14 DAYS...SHE WOULD NEED TO SEE HER PCM TO OBTAIN MORE REGULAR AND PERMANENNT PRESCRIPTIONS FROM HER PCM FOR BROVANA AND PULMICORT.
--- NOTE | 2024-12-24 20:52 | NUR ---
IN TO SEE PT.
--- NOTE | 2024-12-24 21:56 | NUR ---
HS CARE DONE, MEDS GIVEN
--- NOTE | 2024-12-24 22:21 | NUR ---
SVT NOTED ON MONITOR; HR 150'S SUSTAINED. PATIENT DENIED FEELING SOB OR CHEST PAIN. BP STABLE. CALL PLACED TO . EKG IN PROGRESS. MD TO SEE PATIENT.
[2024-12-24] MEDS ORDERED: METOPROLOL TARTRATE 5 MG/5 ML VIAL IV ONE ×3 (22:30→22:45)
--- NOTE | 2024-12-24 22:38 | NUR ---
IV LOPRESSOR GIVEN 5MG X2 PER MD VERBAL ORDER. IN ROOM. PATIENT BP STABLE. HR IMPROVED TO 140'S; SVT. EDUCATION PROVIDED TO PATIENT BY . PATIENT CONTINUES TO DENY CHEST PAIN OR SOB. TOLERATING 3L NC.
--- NOTE | 2024-12-24 22:45 | NUR ---
10MG IV LOPRESSOR GIVEN PER DR DE LOS SANTOS VERBAL ORDER, DR DE LOS SANTOS REMAINS AT BEDSIDE, HR REMAINS 140'S AFTER MEDICATION GIVEN, BPS REMAINS STEADY WELL.
--- NOTE | 2024-12-24 23:05 | NUR ---
15MG IV CARDIZEM GIVEN PER DR MAGLAI HOFFMAN WHO IS AT THE BEDSIDE. HR RATE DID DROP DOWN BRIEFLY, MONITOR LOOKED LIKE AFIB, THEN BACK UP TO 140'S.
[2024-12-24 23:10] LABS: GLOMERULAR FILTRATION RATE,EST 63.0 mL/min (>60); UREA NITROGEN 24.0 mg/dL (7-18)
--- NOTE | 2024-12-24 23:19 | NUR ---
CARDIZEM DRIP STARTED AT 10MG/HR PER DR MAGALI ORDER, HR CONTINUES TO BE 145-147.
[2024-12-25] VITALS (35 sets, daily range): BP systolic 111–161; BP diastolic 61–117
[2024-12-25] MEDS ORDERED: AMIODARONE/DEXTROSE 100 ML IV ONE (00:15)
[2024-12-25] MEDS ORDERED: AMIODARONE/DEXTROSE 200 ML IV ONE ×3 (00:15→06:05)
--- NOTE | 2024-12-25 00:30 | NUR ---
AMIODORONE DRIP STARTED PER EMAR WITH DR DE LOS SANTOS AT BEDSIDE. PTS HR HAD DROPPED WHILE HOOKING UP AMIO TUBING, SO HE ORDERED THE BOLUS OF AMIO TO BE CANCELLED.
--- NOTE | 2024-12-25 01:10 | NUR ---
RHYTHM CHANGE NOTED ON MONITOR, RATE DOWN TO 70'S, APPEARS TO BE AFLUTTER, RT CALLED FOR EKG TO CONFIRM. PT CONTINUES TO REST IN BED, DENIES CHEST PAIN, DOES STATE THAT SHE IS FEELING BETER.
--- NOTE | 2024-12-25 01:15 | NUR ---
HR BACK UP TO 147, PT RESTING WITH EYES CLOSED, RESP EVEN AND UNLABORED, SPO2 98% ON 6L/NC, AMIODORONE CONTINUES TO INFUSE.
--- NOTE | 2024-12-25 01:46 | NUR ---
PT RESTING IN BED, HR 147, AMIODORONE INFUSING.
--- NOTE | 2024-12-25 03:53 | NUR ---
PT RESTING WITH EYES CLOSED, HR 147, RESP EVEN AND UNLABORED, PT ON CONT DIRECTOR CONSUMER, SPO2 98%.
--- NOTE | 2024-12-25 05:15 | NUR ---
IN TO CHECK ON PT, DO ASSESSMENT. SHE AWAKENS EASILY, STATES SHE IS COLD, WARM BLANKET PROVIDED, HR CONTINUES TO BE 147-150, DENIES CHEST PAIN.
--- NOTE | 2024-12-25 06:24 | NUR ---
CALL TO DR DE LOS SANTOS TO UPDATE HIM ON CONTINUED HR 140-150'S, NO ORDERS AT THIS TIME, STATES HE WILL BE COMING DOWN TO SEE PT.
--- NOTE | 2024-12-25 06:52 | NUR ---
IN TO SEE PT, SHE WAS SLEEPING AND AWAKENS EASILY. PT HAS NO REQUESTS AT THIS TIME, UPDATED ON CONTINUED TACHYCARDIA AND PLAN FOR DR DE LOS SANTOS TO COME SEE HER THIS MORNING.
--- NOTE | 2024-12-25 07:20 | NUR ---
REPORT RECEIVED FROM PARTS ADMINISTRATOR RN HAIR. PATIENT IS LYING IN BED WITH HOB ELEVATED. PATIENT WITH EYES CLOSED AND RESPIRATIONS ARE EVEN AND UNLABORED. PATIENT WITH NC IN PLACE. CALL LIGHT AND PERSONAL BELONGINGS ARE WITHIN REACH.
[2024-12-25] MEDS ORDERED: METOPROLOL TARTRATE 5 MG/5 ML VIAL IV ONE (08:15)
--- NOTE | 2024-12-25 09:00 | NUR ---
0800 AND 0900 MEDICATIONS ADMINISTERED PER THE EMAR. FULL ASSESSMENT COMPLETE AND DOCUMENTED IN THE CHART. PATIENT WITH NO COMPLAINTS OF PAIN, NAUSEA, OR SOB. PATIENT REPORTS NUMBNESS AND TINGLING IN BILATERAL TOES/FEET. GENERALIZED EDEMA NOTED IN THE BLE. PATIENT REMAINS ON THE HEART MONITOR. PATIENT IS ON A REGULAR DIET WITH ACTIVE BOWEL TONES. PATIENT WITH NC IN PLACE. LUNG SOUNDS ARE CLEAR IN THE UPPER LOBES AND DIMINISHED IN THE BASES BILATERALLY. ONE TIME DOSE OF METOPROLOL ADMINISTERED PER THE EMAR. AMIODARONE DRIP CONTINUES TO INFUSE. PATIENT REMAINS SITTING AT THE BEDSIDE. PATIENT AND FAMILY WITH NO FURTHER NEEDS AT THIS TIME. CALL LIGHT AND PERSONAL BELONGINGS ARE WITHIN REACH. ANGELA PIEDRA IS IN THE ROOM NOW ASSISTING THE PATIENT.
--- NOTE | 2024-12-25 10:07 | NUR ---
ANGELA PIEDRA IS IN THE ROOM AT THIS TIME PROVIDING PATIENT CARE.
--- NOTE | 2024-12-25 10:20 | NUR ---
CHANGED PATIENT'S PUREWICK. ALSO NEW TAPED ATTEND. PATIENT RAISES HER HIPS FOR YOU WHEN SHE NEEDS TO BE CHANGED. APPLIED BARRIER CREAM.
[2024-12-25] MEDS ORDERED: ENOXAPARIN SODIUM 80 MG/0.8 ML SYR SUB-Q SCH (11:15)
--- NOTE | 2024-12-25 11:15 | NUR ---
PATIENT IS LYING IN BED WITH HOB ELEVATED. PATIENT WITH EYES OPEN AND RESPIRATIONS ARE EVEN AND UNLABORED. HOB IS ELEVATED. PATIENT IS SITTING IN THE RECLINER AT BEDSIDE. PATIENT AND HER ARE SPEAKING WITH SOMEONE ON THE PHONE. CALL LIGHT AND PERSONAL BELONGINGS ARE WITHIN REACH.
--- NOTE | 2024-12-25 11:53 | NUR ---
PATIENT IS LYING IN BED WITH HOB ELEVATED. PATIENT WITH EYES OPEN AND RESPIRATIONS ARE EVEN AND UNLABORED. NC AT 4 L. PATIENT WITH NO PAIN. FULL ASSESSMENT COMPLETE AND DOCUMENTED IN THE CHART. PUREWICK REMAINS IN PLACE. ONLY CHANGE FROM 0800 ASSESSMENT IS EXPIRATPORY WHEEZE AUSCULTATED IN THE LEFT UPPER LOBE. DINNER ORDER PLACED FOR THE PATIENT AT THIS TIME. LUNCH TRAY CANCELLED PER PATIENT REQUEST. PATIENT STATED NO FURTHER NEEDS AT THIS TIME. CALL LIGHT AND PERSONAL BELONGINGS ARE WITHIN REACH. PATIENT LEFT THE UNIT.
[2024-12-25] MEDS ORDERED: METOPROLOL TARTRATE 25 MG TAB PO SCH (12:30)
--- NOTE | 2024-12-25 15:05 | NUR ---
PATIENT IS LYING IN BED WITH HOB ELEVATED. PATIENT WITH EYES CLOSED AND RESPIRATIONS ARE EVEN AND UNLABORED. NC IN PLACE. PATIENT HR IS 80-100'S. PATIENT IS SITTING IN THE RECLINER AT BEDSIDE. CALL LIGHT AND PERSONAL BELONGINGS ARE WITHIN REACH. TV IS ON.
--- NOTE | 2024-12-25 16:14 | NUR ---
PATIENT IS LYING IN BED WITH EYES CLOSED AND RESPIRATIONS ARE EVEN AND UNLABORED. HOB ELEVATED. PATIENT WITH NC IN PLACE AND CONTINUES TO BE ON THE ELECTRICAL DRAFTER. CALL LIGHT AND PERSONAL BELONGINGS ARE WITHIN REACH. TV IS ON.
--- NOTE | 2024-12-25 17:11 | NUR ---
PATIENT IS LYING IN BED WITH HOB ELEVATED. PATIENT WITH EYES OPEN AND RESPIRATIONS ARE EVEN AND UNLABORED. NC IN PLACE. PATIENT IS WATCHING TV AND EATING DINNER. PATIENT STATED NO FURTHER NEEDS AT THIS TIME. CALL LIGHT AND PERSONAL BELONGINGS ARE WITHIN REACH.
--- NOTE | 2024-12-25 17:49 | NUR ---
GIVEN UPDATE REGARDING PATIENT CARDIAC RHYTHM AND HR. MD STATED HE WOULD MOST LIKELY DISCONTINUE THE CARDIAC DRIP IN AN HOUR OR TWO AND CONTINUE WITH THE METOPROLOL DOSES. NO NEW ORDERS AT THIS TIME. CALL ENDED.
[2024-12-25] MEDS ORDERED: AMIODARONE HCL 180 MG in SODIUM CHLORIDE 0.9% 96.4 ML IV ONE (18:05)
--- NOTE | 2024-12-25 18:45 | NUR ---
TRIED TO PUT PATIENT ON A BED THE FIRST ONE DIDN'T WORK SO THAN TRIED THE BIGGER BED BURKETT AND IT DIDN'T WORK EITHER. PATIENT SAID SHE COULDN'T BREATH PUT THE HEAD OF HER BED UP LINSEY WAS OUT HERE SO I CALLED HIM INTO THE ROOM HE TURNED UP HER OXYGEN. THAN RT CAME IN AND GAVE HER A BREATHING TREATMENT. ALSO CHANGED HER TAPED ATTEND AND ERIN AT 1900.
--- NOTE | 2024-12-25 19:45 | NUR ---
SHIFT REPORT RECEIVED. PATIENT RESTING IN BED WATHCING TV WITH AT BEDSIDE. PATIENT DENIED ANY CONCERNS. FRESH ICE WATER PROVIDED. HR 80-90'S; DILT AT 10 MG/HR. BP STABLE.
--- NOTE | 2024-12-25 21:45 | NUR ---
PATIENT PROVIDED WITH SCHEDULED MEDS AND PRN MEDS PER REQUEST. PATIENT REPORTS MUSCLE PAIN FROM COUGHING WHICH HAS BEEN BETTER WITH MEDS. TOLERATING 4L NC. LUNG SOUNDS ARE CLEAR AND DIM. DENIES GI UPSET. HR CONSISTENT 80-90'S. TITRATED DILT TO 5 MG/HR. PER 'S REQUEST TO TITRATE DILT OFF WHEN POSSIBLE. IV SITE WNL. PATIENT BRUSHED HER TEETH AND WASHED HER FACE. PURE WIC CHANGED AT SHIFT CHANGE AND IS IN PLACE. LIGHTS DIMMED. CALL LIGHT IN REACH.
[2024-12-26] VITALS (24 sets, daily range): BP systolic 92–142; BP diastolic 54–112
--- NOTE | 2024-12-26 | NUR ---
PATIENT RESTING IN BED. EYES CLOSED. VS STABLE. HR REMAINS 80'S; IRREGULAR. TURNED OFF CARDIZEM.
--- NOTE | 2024-12-26 02:00 | NUR ---
PATIENT REMAINS RESTING WITH EYES CLOSED. VS STABLE. TOLERATING 4L NC. HR 80-90'S.
--- NOTE | 2024-12-26 04:00 | NUR ---
PATIENT RESTING WITH EYES CLOSED. HR REMAINS CONTROLED. CALL LIGHT IN REACH.
[2024-12-26 05:07] LABS: MCH 30.4 PG (25.6-32.2); MCHC 32.2 g/dL (32.2-35.5); MCV 94.4 fL (79.4-94.8); RBC 3.92 M/uL (3.93-5.22)
[2024-12-26 05:17] LABS: GLOMERULAR FILTRATION RATE,EST 68.0 mL/min (>60); UREA NITROGEN 26.0 mg/dL (7-18)
[2024-12-26 05:34] LABS: LYMPHOCYTES, MANUAL DIFF 27; MONOCYTES, MANUAL DIFF 6; NEUTROPHILS, MANUAL DIFF 67
--- NOTE | 2024-12-26 06:26 | NUR ---
patient assisted with morning cares. pure wic changed at this time. shala care done. patient is aaox4. denies sob. vs stable. call light in reach.
--- NOTE | 2024-12-26 07:20 | NUR ---
REPORT RECEIVED FROM WILDLAND FIRE FIGHTER RN KAREN. PATIENT IS LYING IN BED WITH HOB ELEVATED. PATIENT WITH EYES OPEN AND RESPIRATIONS ARE EVEN AND UNLABORED. NC IN PLACE. PATIENT TALKED TO THIS RN REGARDING THE EdRover GAME. PATIENT STATED NO FURTHER NEEDS AT THIS TIME. CALL LIGHT AND PERSONAL BELONGINGS ARE WIHTIN REACH.
--- NOTE | 2024-12-26 08:05 | NUR ---
0800 AND 0900 MEDICATIONS ADMINISTERED PER THE EMAR. PATIENT FULL ASSESSMENT COMPLETE AND DOCUMENTED IN THE CHART. PATIENT REMAINS ON THE HEART MONITOR IN ATRIAL FLUTTER. HEART TONES ARE IRREGULAR. NUMBNESS AND TINGLING REPORTED IN THE BLE AT BASELINE. PATIENT IS ON HER CHRONIC 4 L NC. LUNG SOUNDS ARE CLEAR THROUGHOUT. PATIENT WITH A DRY COUGH. PATIENT IS ON A REGULAR DIET WITH BOWEL TONES ACTIVE IN ALL FOUR QUADRANTS. PATIENT WITH NO COMPLAINTS OF NAUSEA OR PAIN AT THIS TIME. IV SITES ARE BOTH SALINE LOCKED AND WERE BOTH FLUSHED WITH 10 ML NORMAL SALINE. IV DRESSINGS ARE CLEAN, DRY, AND INTACT. PATIENT IS ALERT AND ORIENTED. VITAL SIGNS TAKEN AND DOCUMENTED IN THE CHART. PUREWICK REMAINS IN PLACE. PATIENT STATED NO FURTHER NEEDS AT THIS TIME. CALL LIGHT AND PERSONAL BELONGINGS ARE WITHIN REACH. BREAKFAST TRAY DELIVERED.
--- NOTE | 2024-12-26 09:17 | NUR ---
PATIENT IS SITTING UPRIGHT IN THE CHAIR WITH NC IN PLACE. PATIENT WITH EYES OPEN AND RESPIRATIONS ARE EVEN AND UNLAORED. BREAKFAST TRAY REMOVED. PATIENT REMAINS CONNECTED TO THE MONITOR. PATIENT HR REMAINS IN 160-170'S. LIZETH REMAINS IN THE ROOM.
--- NOTE | 2024-12-26 09:24 | NUR ---
NOTIFIED OF PATIENT STATUS. STATED TO GIVE 15 MG CARDIZEM BOLUS NOW AND RESTART THE CARDIZEM DRIP. NO FURTHER NEEDS AT THIS TIME. CALL ENDED.
--- NOTE | 2024-12-26 09:34 | NUR ---
NOTIFIED OF PATIENT HEART NOW 120-130'S. STATED TO NOW OLD THE CARDIZEM BOLUS AND DO NOT RESTART THE CARDIZEM DRIP. STATED HE WOULD PUT IN NEW ORDERS AT THIS TIME. CALL ENDED.
[2024-12-26] MEDS ORDERED: METOPROLOL SUCCINATE 50 MG TABCR PO SCH (09:36)
[2024-12-26] MEDS ORDERED: APIXABAN 5 MG TAB PO SCH (09:38)
--- NOTE | 2024-12-26 10:20 | NUR ---
PATIENT IS SITTING IN THE CHAIR WITH BILATERAL LOWER EXTREMITIES ELEVATED. PATIENT WITH NC IN PLACE. PATIENT WITH EYES OPEN AND RESPIRATIONS ARE EVEN AND UNLABORED. PATIENT IS WATCHING TV. VISITOR ENTERED THE ROOM AT THIS TIME. CALL LIGHT AND PERSONAL BELONGINGS ARE WITHIN REACH.
--- NOTE | 2024-12-26 10:26 | NUR ---
NOTIFIED OF PATIENT HR INCREASING AGAIN TO THE 160-170'S. MD STATED TO CONTINUE TO HOLD THE CARDIZEM BOLUS AND RESTARTING THE DRIP. MD STATED TO WAIT ANOTHER 30 MINS TO SEE IF THE METOPROLOL SUCCINATE WILL KICK IN. MD STATED TO NOTIFY HIM IN ABOUT 30 MINUTES. MD WITH NO FURTHER ORDERS AT THIS TIME. CALL ENDED.
[2024-12-26] MEDS ORDERED: METOPROLOL TARTRATE 5 MG/5 ML VIAL IV ONE ×2 (10:45→14:30)
--- NOTE | 2024-12-26 11:38 | NUR ---
PRN TYLENOL ADMINISTERED PER THE EMAR FOR 5/10 BOTTOM AND RIB CAGE PAIN. PATIENT IS SITTING IN THE CHAIR WITH BILATERAL LOWER EXTREMITIES ELEVATED. PATIENT WITH NC IN PLACE. PATIENT WITH VISITOR AND HER IN THE ROOM. FULL ASSESSMENT COMPLETE AND DOCUMENTED IN THE CHART. NO CHANGES FROM 0800 ASSESSMENT. PATIENT AND VISITORS STATED NO FURTHER NEEDS AT THIS TIME. CALL LIGHT AND PERSONAL BELONGINGS ARE WITHIN REACH.
--- NOTE | 2024-12-26 12:07 | NUR ---
PATIENT IS SITTING IN THE CHAIR WITH BILATERAL LOWER EXTREMITIES ELEVATED. PATIENT WITH NC IN PLACE. PATIENT IS LOOKING ON HER PHONE. TWO VISITORS REMAIN IN THE ROOM AT THIS TIME. PATIENT REMAINS ON THE HEART MONITOR. CALL LIGHT AND PERSONAL BELONGINGS ARE WITHIN REACH.
--- NOTE | 2024-12-26 13:39 | NUR ---
PATIENT IS SITTING IN THE CHAIR WITH BILATERAL LOWER EXTREMITIES ELEVATED. PATIENT WITH EYES OPEN AND RESPIRATIONS ARE EVEN AND UNLABORED. NC IN PLACE. PATIENT WITH TWO VISITORS IN THE ROOM. CALL LIGHT AND PERSONAL BELONGINGS ARE WITHIN REACH.
--- NOTE | 2024-12-26 13:56 | NUR ---
PATIENT ASSISTED BACK TO BED WITH DENYS JONES. PATIENT TURNED UP TO 6 L NC THROUGHOUT THE TRANSFERS. PRIOR TO GETTING BACK TO BED, PATIENT VOIDED 200 ML YELLOW URINE IN THE COMMODE. NEW BRIEF IN PLACE. PATIENT THEN TRANSFERRED BACK TO BED. PILLOWS PLACED BEHIND PATIENT BACK FOR COMFORT. PATIENT HR IS NOW IN THE 160'S POST TRANSFERRING. SPO2 IS 96%. PATIENT ROOM TIDIED UP. PATIENT STATED NO FURTHER NEEDS AT THIS TIME. CALL LIGHT AND PERSONAL BELONGINGS ARE WITHIN REACH.
--- NOTE | 2024-12-26 14:23 | NUR ---
NOTIFIED OF PATIENT HEART RATE REMAINING AT 160 AFTER TRANSFERRING BACK TO BED. MD GAVE TELEPHONE ORDER FOR IV AND PO ADDITIONAL DOSES OF METOPROLOL. ORDERS PUT IN BY THIS RN. WITH NO FURTHER ORDERS AT THIS TIME. CALL ENDED.
[2024-12-26] MEDS ORDERED: METOPROLOL TARTRATE 50 MG TAB PO ONE (14:30)
--- NOTE | 2024-12-26 15:01 | NUR ---
1430 MEDICATIONS ADMINISTERED PER THE EMAR. AND THIS RN ARE IN THE ROOM AT THIS TIME AND ROUNDING ON THE PATIENT. PATIENT REMAINS IN THE ROOM AT BEDSIDE. PATIENT AND FAMILY STATED NO FURTHER NEEDS AT THIS TIME. CALL LIGHT AND PERSONAL BELONGINGS ARE WITHIN REACH.
--- NOTE | 2024-12-26 15:14 | EKG ---
[facility] [address] [place] [address] Signed Atrial flutter with variable AV block T wave abnormality, consider anterior ischemia Abnormal ECG When compared with ECG of 24-DEC-2024 22:16, (Unconfirmed) Atrial flutter has replaced Sinus rhythm Vent. rate has decreased BY [address] no longer depressed in Anterolateral leads T wave inversion no longer evident in Inferior leads T wave inversion no longer evident in Lateral leads Confirmed by KVNG DE LOS SANTOS MD ([id number]) on 12/26/2024 3:14:33 PM Electronically Signed By: KVNG DE LOS SANTOS 12/26/24 1514 PATIENT NAME: LISETH TEJADA Electrocardiogram DATE OF : 48 PHYSICIAN: KVNG DE LOS SANTOS REPORT #: [id number] REPORT IS CONFIDENTIAL AND NOT TO BE RELEASED WITHOUT AUTHORIZATION
--- NOTE | 2024-12-26 15:14 | EKG ---
[facility] [address] [place], [place] [address] Signed Supraventricular tachycardia RSR' or QR pattern in V1 suggests right ventricular conduction delay ST \T\ T wave abnormality, consider inferior ischemia ST \T\ T wave abnormality, consider anterolateral ischemia Abnormal ECG No previous ECGs available Confirmed by KVNG DE LOS SANTOS MD ([id number]) on 12/26/2024 3:14:18 PM Electronically Signed By: KVNG DE LOS SANTOS 12/26/24 1514 PATIENT NAME: MARIPOSA STEARNSLISETH G Electrocardiogram DATE OF : 48 PHYSICIAN: KVNG DE LOS SANTOS REPORT #: [id number] REPORT IS CONFIDENTIAL AND NOT TO BE RELEASED WITHOUT AUTHORIZATION
--- NOTE | 2024-12-26 15:35 | NUR ---
PATIENT IS LYING IN BED WITH HOB ELEVATED. PATIENT WITH EYES OPEN AND RESPIRATIONS ARE EVEN AND UNLABORED. NC IN PLACE. PATIENT IS SITTING IN THE RECLINER AT BEDSIDE. FULL ASSESSMENT COMPLETE AND DOCUMENTED IN THE CHART. ASSESSMENT WITH NO SIGNIFICANT CHANGES FROM 1200 ASSESSMENT. PATIENT REMAINS ON THE SHINGLE INSPECTOR. PATIENT AND FAMILY STATED NO FURTHER NEEDS AT THIS TIME. CALL LIGHT AND PERSONAL BELONGINGS ARE WITHIN REACH.
--- NOTE | 2024-12-26 16:03 | NUR ---
VITAL SIGNS TAKEN AND DOCUMENTED IN THE CHART. PATIENT IS LYING IN BED WITH HOB ELEVATED. NC IN PLACE. PATIENT WITH EYES OPEN AND RESPIRATIONS ARE EVEN AND UNLABORED. TV IS ON. PATIENT REMAINS SITTING IN THE RECLINER AT BEDSIDE. PATIENT AND FAMILY STATED NO FURTHER NEEDS AT THIS TIME. CALL LIGHT AND PERSONAL BELONGINGS ARE WITHIN REACH.
--- NOTE | 2024-12-26 17:11 | NUR ---
ANGELA STANLEY ENTERED THE ROOM AT THIS TIME AND DELIVERED PATIENT DINNER TRAY.
--- NOTE | 2024-12-26 18:01 | NUR ---
PATIENT IS LYING IN BED WITH HOB ELEVATED. NC AND HEART MONITOR REMAINS IN PLACE. PATIENT WITH EYES CLOSED AND RESPIRATIONS ARE EVEN AND UNLABORED. PATIENT IS SITTING IN THE RECLINER AT BEDSIDE. CALL LIGHT AND PERSONAL BELONGINGS ARE WITHIN REACH. TV IS ON.
[2024-12-26] MEDS ORDERED: METOPROLOL SUCCINATE 100 MG TABCR PO SCH (21:00)
[2024-12-27] VITALS (12 sets, daily range): BP systolic 98–153; BP diastolic 56–89
--- NOTE | 2024-12-27 00:15 | NUR ---
PATIENT APPEARS TO BE RESTING COMFORTABLY. EYES CLOSED. VS STABLE. HR 80-90'S. A FLUTTER. TOLERATING 4L NC. CALL LIGHT IN REACH.
--- NOTE | 2024-12-27 03:24 | NUR ---
PATIENT UP TO BSC TO VOID. PATIENT ABLE TO TRANSFER WITH MINIMAL ASSISTANCE. SOB WITH ACTIVITY AND TAKES SEVERAL MINS TO RECOVER. PATIENT HAD BM AND NEW ATTENDS IN PLACE. BACK TO BED. HOB ELEVATED. PATIENT AT 6L NC FOR ACTIVITY AND 5L NC AFTER ACTIVITY TO RECOVER. WARM BLANKET PROVIDED. NO OTHER NEEDS AT THIS TIME. CALL LIGHT IN REACH.
--- NOTE | 2024-12-27 06:00 | NUR ---
ASSISTED PATIENT UP TO BS. PATIENT TOLERATED ACTIVITY WELL. DID REPORT FEELING SOB AFTER TRANSFER BUT Sp02 REMAINED >88% ON 5L NC. PATIENT HAS SMALL BM. DENIED OTHER NEEDS. CALL LIGHT IN REACH.
--- NOTE | 2024-12-27 07:50 | NUR ---
ALERT AND ORIENTED IN BED. SPOUSE AT BEDSIDE. CONTINUES TO PLAN DC TO HOME WITH HOME HEALTH. SPOUSE AGREES WITH THIS PLAN
--- NOTE | 2024-12-27 08:29 | NUR ---
PT SITTING UP IN BED AT THIS TIME, RT INTO COMPLETE TX'S. BKF GIVEN AND AM MEDICATIONS.
--- NOTE | 2024-12-27 10:51 | NUR ---
PT REMAINS UP IN THE CHAIR, LINE CHANGED, PT WILL GET WASHED UP LATER TODAY DUE TO SHE JUST GOT HER BREATH BACK. O2 REMAINS AT 4L'S NC.
--- NOTE | 2024-12-27 11:57 | NUR ---
PT UP TO BS COMMOD WITH FWW AND ONE PERSON TO MANAGE TUBES AND LINES, PT VOIDED, PASSING GAS AND DID WELL SPO2 DECREASES, BUT NOT SURE IF WE GET A TRUE SPO2 READING DUE TO HAND MOVEMENT. HR INCREASES TO THE 170'S WITH ACTIVITY AND WILL DECREASE TO THE 80-100'S.
--- NOTE | 2024-12-27 13:29 | NUR ---
PT CALLS TO ASK IF SHE CAN HAVE TYLENOL FOR BACK PAIN AND ARM PAIN. 650MG PO TYLENOL GIVEN. PT REMAINS UP IN CHAIR, HR 90'S AFLUTTER, IN ROOM VISITING PT.
--- NOTE | 2024-12-27 14:38 | NUR ---
CALL TO DR KUAMR TO INFORM HIM OF PT HAVING CHEST PAIN, ORDER FOR EKG AND HE STATES HE WILL BE DOWN TO SEE PT.
--- NOTE | 2024-12-27 14:40 | NUR ---
pt up to bs commode voided and back to chair. C/O INCREASED SOB AND CEST PAIN. BACK TO BED AT THIS TIME. PT DID NOT WANT TO GO TO BED AND MACHINE CLIPPER SAID YES TO BED. PT WENT AND INCREASED O2 TO 5L'S NC AND ADDED OXY MASK AT 9L'S DUE TO SPO2 DECREASED TO 76 THEN TO 66% 1442 EKG COMPLETED AND SPO2 UP TO 99% NOW CP ACROSS HER BACK 1444 LAB PRESENT SAMPLE OBTAINED DR KUMAR IN ROOM HEART RATE VARIES FROM 99 TO 140'S SPO2 99% 112/82(93). 1451 CP BURNING AND IN HER BACK NOW TIGHTNESS IN CHEST PRESSURE AND BURNING 1453 137/96 (107) 99% JAW PAIN AND MIDDLE OF HER BACK PAIN IS STILL THERE 1456 JAW PAIN, NECK PAIN CP SQUEZING HER 1500 NITRO GIVEN 1505 CP PAIN LETTING UP BUT STILL HAVE A VICE AROUND MY CHEST 1508 NITRO SL GIVEN FOR CHEST PAIN AGAIN AND STARTED NS @125ML/HR. 1526 NEB TX GIVEN GI COCKTAIL GIVEN ORDERED 1540 NO CHEST PAIN "FEELS GREAT"
[2024-12-27 14:56] LABS: BASOPHILS 0.6 % (0.1-1.2); EOSINOPHILS 0.1 % (0.7-5.8); LYMPHOCYTES 15.0 % (19.3-51.7); MCH 30.4 PG (25.6-32.2); MCHC 32.6 g/dL (32.2-35.5); MCV 93.3 fL (79.4-94.8); MONOCYTES 8.8 % (4.7-12.5); NEUTROPHILS 72.3 % (34.0-71.1); RBC 4.18 M/uL (3.93-5.22)
[2024-12-27 15:13] LABS: ALT (SGPT) 52.0 U/L (14-59); AST (SGOT) 25.0 U/L (15-37); GLOMERULAR FILTRATION RATE,EST 43.0 mL/min (>60); PROTEIN, TOTAL 6.6 g/dL (6.4-8.2); UREA NITROGEN 33.0 mg/dL (7-18)
[2024-12-27] MEDS ORDERED: NITROGLYCERIN 0.4 MG SUBL SL PRN (15:15)
[2024-12-27] MEDS ORDERED: SIMETHICONE 80 MG CHEW PO PRN (15:15)
[2024-12-27] MEDS ORDERED: SODIUM CHLORIDE 0.9% 1,000 ML IV SCH (15:15)
[2024-12-27] MEDS ORDERED: LIDOCAINE & ANTACID 35 ML BTL PO PRN (15:15)
[2024-12-27] MEDS ORDERED: MAGNESIUM SULFATE 2 GM/50 ML BAG IV ONE (15:30)
[2024-12-27] MEDS ORDERED: POTASSIUM CHLORIDE 40 MEQ,LIDOCAINE HCL 1% 40 MG in DEXTROSE 5% 250 ML IV ONE (15:30)
--- NOTE | 2024-12-27 18:03 | NUR ---
EDUCATION PACKAGE FOR COPD AND A-FIB GIVEN TO PT AT THIS TIME.
--- NOTE | 2024-12-27 18:17 | NUR ---
PT IN BED DENIES CP OR ANY OTHER PAIN OTHER THAN GAS. PT WANTS TO KEEP HER DINNER TRAY AT THIS TIME. REMAINS AT THE BEDSIDE. K+RIDER INFUSING ALSON WITH HER IV FLUIDS INTO THE LT AC IV SITE. THE AREA IS RED DUE TO PT HAS ITCHED IT.
--- NOTE | 2024-12-27 19:28 | NUR ---
REPORT GIVEN TO TRAFFIC SURVEY TECHNICIAN.
--- NOTE | 2024-12-27 19:45 | NUR ---
HANDOFF REPORT RECEIVED FROM DAY SHIFT RN. PATIENT SITTING UP AWAKE IN BED, AT BEDSIDE. VITAL SIGNS STABLE. NO SIGNS OF ACUTE DISTRESS NOTED. CALL LIGHT IN REACH.
--- NOTE | 2024-12-27 20:35 | NUR ---
PATIENT ASSESSMENT COMPLETE. PATIENT SITTING UP AWAKE IN BED. PATIENT REMAINS ON 5L NC, TOLERATING WELL. PATIENT ALERT AND ORIENTED. PATIENT REMAINS IN A. FLUTTER, HEART RATE 80-90'S. PATIENT COMPLAINS OF INCREASED ABDOMINAL GAS. PATIENT DENIES NAUSEA, OR FEELING SOB AT THIS TIME. PATIENT LEFT AC IV SITE WNL. PATIENT PROVIDED WITH FRESH ICE WATER. NO FURTHER NEEDS AT THIS TIME. CALL LIGHT IN REACH.
--- NOTE | 2024-12-27 22:32 | NUR ---
PT UP TO BEDSIDE COMMODE WITH ASSISTANCE OF VISION SPECIALIST AND RN. PT IN BED SITTING UPRIGHT.
--- NOTE | 2024-12-27 22:48 | NUR ---
PT COMPLAINS OF 9/10 ABD GAS PAINS, PRN MEDS PROVIDED. NO OTHER NEEDS STATED AT THIS TIME. CALL LIGHT IN REACH.
[2024-12-28] VITALS (16 sets, daily range): BP systolic 106–137; BP diastolic 50–69
--- NOTE | 2024-12-28 01:00 | NUR ---
patient resting in bed with eyes closed, no signs of acute distress noted. patient remains on 5L NC, tolerating well. patient IVF infusing per EMAR. no needs at this time. call light in reach.
--- NOTE | 2024-12-28 03:15 | NUR ---
patient resting in bed with eyes closed, RR 22. patient remains on 5L NC, tolerating well. vital signs stable. patient remains in A. Flutter, heart rate 80's-90's. patient has no needs at this time. call light in reach.
--- NOTE | 2024-12-28 05:09 | NUR ---
LAB IN PATIENT ROOM FOR MORNING LAB DRAW
[2024-12-28 05:22] LABS: BASOPHILS 0.2 % (0.1-1.2); EOSINOPHILS 0.5 % (0.7-5.8); LYMPHOCYTES 14.9 % (19.3-51.7); MCH 30.2 PG (25.6-32.2); MCHC 31.8 g/dL (32.2-35.5); MCV 95.0 fL (79.4-94.8); MONOCYTES 6.8 % (4.7-12.5); NEUTROPHILS 74.5 % (34.0-71.1); RBC 3.58 M/uL (3.93-5.22)
[2024-12-28 05:40] LABS: ALT (SGPT) 40.0 U/L (14-59); AST (SGOT) 19.0 U/L (15-37); GLOMERULAR FILTRATION RATE,EST 66.0 mL/min (>60); PROTEIN, TOTAL 5.4 g/dL (6.4-8.2); UREA NITROGEN 25.0 mg/dL (7-18)
--- NOTE | 2024-12-28 09:14 | NUR ---
SPOKE WITH PATIENT REGARDING DC PLAN. STATES SHE IS NOW AGREEABLE TO SNF. SHE IS FAMILIAR WITH [facility] AND WOULD PREFER TO GO TO [facility], SHE IS OPEN TO [facility] IF [facility] IS UNABLE TO ACCEPT HER. WILL SEND REFERRALS TO BOTH FACILITIES.
[2024-12-28] MEDS ORDERED: LIDOCAINE & ANTACID 35 ML BTL PO ONE (09:15)
--- NOTE | 2024-12-28 09:25 | NUR ---
PT UP TO THE BS COMMODE AND VOIDED AND HAD BM. BUT THE COMMODE BUCKET FELL TO THE FLOOR AND SPILLED. WE EXPLAINED TO PT THAT SHE WOULD GO TO THE CHAIR AFTER THE BS COMMODE. THEN PT DEVELOPED CHEST DISCOMFORT "I HAVE SHEST PAIN LIKE I DID YESTERDAY" ASKED HER WHAT SHE WOULD LIKE AND SHE WANTED THE GI COCKTAIL. DR KUMAR NOTIFIED AND WAS ORDERED. 0936 GI COCKTAIL GIVEN AND PT FELT THAT IT HELP AND CHEST PAIN GONE. ALSO A PRN NEB TX GIVEN TO HELP WITH SOB. AFTER ALL PT BACK TO BED.
--- NOTE | 2024-12-28 11:33 | NUR ---
VINICIUS FROM [facility] STATES THEY CAN ACCEPT PATIENT, ASKING IF SHE CAN BE ADMITTED TOMORROW 12/29/24, WILL SPEAK WITH DR. KUMAR.
--- NOTE | 2024-12-28 12:52 | NUR ---
SPOKE WITH PATIENT, VINICIUS AT [facility] AND DR. KUMAR. PLAN TO DC TO [facility] ON FRIDAY. PATIENT STATES HER WILL PROVIDE TRANSPORTATION FOR HER.
--- NOTE | 2024-12-28 14:05 | NUR ---
Patient transferred to commode via stand by assist with use of walker. Commode changed to bariatric commode, patient verbalized feeling more stable on this. Supplemental O2 therapy increased to 5LPM during ambulation via nasal cannula. O2 sat >88% during transfer. Patient verbalized difficulty expelling gas. Depends changed. Measured 450 ml urine output, yellow in color. Transferred back to bed, bed in lowest position. Pam present in room. Call light within reach. SN FESTUS.
--- NOTE | 2024-12-28 14:20 | NUR ---
DR KUMAR INTO TALK WITH PT AND SHE WILL BE TRANSFER TO THE M/S UNIT AT SOMEPOINT TODAY. PT PLACED ON TEL #8 AT THIS TIME. IN THE ROOM AND IS AWARE OF THE ROOM CHANGE.
--- NOTE | 2024-12-28 14:56 | NUR ---
PT DID NOT WANT TO WORK WITH OT/PT TODAY. REMAINS IN BED AND WILL ONLY GET UP- TO USE BS COMMODE. ANGELA PIEDRA DID GET HER TO USE THE FELICITY THIS AFTERNOON.
--- NOTE | 2024-12-28 15:05 | NUR ---
[facility] REQUESTING PATIENT DC FROM THIS FACILITY FOR ADMIT TO [facility] AROUND 1300 ON FRIDAY
--- NOTE | 2024-12-28 15:18 | NUR ---
VERBAL REPORT RECEIVED FROM DENYS PALACIOS.
--- NOTE | 2024-12-28 15:29 | NUR ---
REPORT GIVEN TO PARK MCFARLANE ALL QUESTIONS ANSWERED. PT HAD A COMPLETE BEDBATH AND SHAMPOO UP TO CHAIR AND TRANSFERED TO ROOM M/S 112. IS PRESENT AND WILL TAKE ALL PERSONAL BELONGINGS WITH HIM TO ROOM 112.
--- NOTE | 2024-12-28 15:53 | NUR ---
PT ARRIVES TO MED-SURG ROOM 112 VIA CHAIR ESCORTED BY ANGELA PIEDRA. PT IS ALERT AND ORIENTED, ON 4 L O2 VIA NC, SPO2 95%, CPOX IN PLACE. PT REPORTS STOMACH/SIDE PAIN TOLERABLE AT THIS TIME, DENIES NAUSEA. TELEMETRY IN PLACE. LUNGS CLEAR UPON ASSESSMENT, HR IRREGULARLY IRREGULAR. PT ORIENTED TO ROOM, BED AND CALL LIGHT. NO REQUEST AT THIS TIME.
--- NOTE | 2024-12-28 17:46 | NUR ---
IV FLUSHED WITH 10 CC OF NS, PATENT, NO REDNESS OR SWELLING NOTED. NS INFUSION STARTED AT 125 ML/HR ORDERED, SEE EMAR. PT TOLERATED WELL. PT ON 4 LPM O2, SPO2 96%. PT TOLERATES DINNER WELL. NO REQUESTS AT THIS TIME.
--- NOTE | 2024-12-28 18:46 | NUR ---
PT IN BED, HEAD UP, TV ON AND NO VISITORS IN THE ROOM. I CLEANED UP THE ROOM AND TOOK OUT ROOM TRASH. PT HAS TWO CUPS OF WATER NEXT TO HER BED, I FRESHENED UP ONE AND ADDED ICE. PT HAS CALL LIGHT IN HER HANDS AND REPORTS NEEDING NOTHING MORE AT THIS TIME.
--- NOTE | 2024-12-28 18:48 | NUR ---
ROOM WAS PICKED UP AND TRASH REMOVED. PT HAS FRESH ICE WATER NEXT TO HER BED AND THE CALL LIGHT IN HER HANDS. PT REFUSED A BED BATH, SAID IT WAS "TOO LATE".
--- NOTE | 2024-12-28 19:15 | NUR ---
REPORT RECEIVED FROM PARK MCFARLANE. pt RESTING IN THE BED. CPOX ALARMING. pt NC OUT OF NOSE. THIS RN AND DAY SHIFT RN PLACED NC BACK IN pt NOSE HAD HAD pt TAKE SOME DEEP BREATHS O2 SATURATION WENT BACK UP TO 94% FROM 80%. pt DENIES ANY NEEDS AT THIS TIME. BOARD UPDATED. CALL LIGHT WITHIN REACH.
[2024-12-28] MEDS ORDERED: BUDESONIDE 0.5 MG/2 ML VIAL INH SCH (20:00)
--- NOTE | 2024-12-28 21:45 | NUR ---
ASSESSMENT AND VITAL SIGNS DONE. IV ASSESSED, WNL. IVF INFUSING PER ORDER. SCHEDULED MEDS ADMINISTERED. pt ON 4LNC AND SATTING AT 96%. pt DENIES ANY NEEDS AT THIS TIME. CALL LIGHT WITHIN REACH. WATER REFRESHED.
--- NOTE | 2024-12-28 22:29 | EKG ---
[facility] [address] [place] [address] Signed Atrial flutter with variable AV block Incomplete right bundle branch block ST \T\ T wave abnormality, consider anterolateral ischemia Prolonged QT Abnormal ECG When compared with ECG of 25-DEC-2024 01:08, Incomplete right bundle branch block is now present Confirmed by Krista Kumar MD () on 12/28/2024 10:29:27 PM Electronically Signed By: KRISTA KUMAR MD 12/28/24 2229 PATIENT NAME: LISETH TEJADA Electrocardiogram DATE OF : 48 PHYSICIAN: KRISTA KUMAR MD REPORT #: [id number] REPORT IS CONFIDENTIAL AND NOT TO BE RELEASED WITHOUT AUTHORIZATION
--- NOTE | 2024-12-28 23:15 | NUR ---
pt RESTING IN THE BED WITH EYES CLOSED. RR EVEN AND UNLABORED. CALL LIGHT WITHIN REACH.
[2024-12-29] VITALS (11 sets, daily range): BP systolic 100–134; BP diastolic 46–85
--- NOTE | 2024-12-29 01:30 | NUR ---
SBA PATIENT UP TO BEDSIDE COMMODE USING WALKER TO VOID UNMEASURED IN LARGE QUANTITY AND SOFT LARGE BOWEL MOVEMENT. NEFTALI CARE ASSISTED. FRESH PULL UP PLACED. PATIENT IS BACK IN BED. NO FURTHER NEEDS AT THIS TIME. CALL LIGHT AND SIDE TABLE WITHIN REACH.
--- NOTE | 2024-12-29 02:15 | NUR ---
IN RM WITH NUT SORTER OPERATOR TO DO VITAL SIGNS AND ASSESSMENT. pt UP TO THE BSC. pt O2 INCREASED TO 6LNC DURING ACTIVITY DUE TO INCREASED SOB. pt BACK TO BED AND BROUGHT BACK DOWN TO 4LNC. pt C/O 08/03 PAIN. PRN PAIN MEDS ADMINISTERED. pt DENIES ANY OTHER NEEDS AT THIS TIME. CALL LIGHT WITHIN REACH.
--- NOTE | 2024-12-29 03:24 | NUR ---
pt RESTING IN THE BED WITH EYES CLOSED. RR EVEN AND UNLABORED. CALL LIGHT WITHIN REACH.
--- NOTE | 2024-12-29 05:11 | NUR ---
IN RM WITH DIGITAL SALES PLANNER TO DO VITAL SIGNS. pt SATTING AT 98% ON 4LNC. pt DENIES ANY NEEDS AT THIS TIME. CALL LIGHT WITHIN REACH.
[2024-12-29 05:14] LABS: MCH 30.3 PG (25.6-32.2); MCHC 31.9 g/dL (32.2-35.5); MCV 94.8 fL (79.4-94.8); RBC 3.47 M/uL (3.93-5.22)
[2024-12-29 05:23] LABS: GLOMERULAR FILTRATION RATE,EST 67.0 mL/min (>60); UREA NITROGEN 18.0 mg/dL (7-18)
[2024-12-29 05:33] LABS: BANDS, MANUAL DIFF 1; EOSINOPHILS, MANUAL DIFF 3; LYMPHOCYTES, MANUAL DIFF 28; MONOCYTES, MANUAL DIFF 7; NEUTROPHILS, MANUAL DIFF 61
--- NOTE | 2024-12-29 07:24 | NUR ---
RECIEVED REPORT FROM DENYS SHAFFER. PT IS SITTING UP IN CHAIR, ON PHONE. CALL LIGHT AND PERSONAL BELONGINGS ARE WITHIN REACH.
--- NOTE | 2024-12-29 07:24 | NUR ---
RECIEVED REPORT FROM DENYS SHAFFER. PT IS RESTING IN BED WITH EYES CLOSED. RR EVEN AND UNLABORED. CALL LIGHT NAD PERSONAL BELONGINGS ARE WITHIN REACH.
--- NOTE | 2024-12-29 08:26 | NUR ---
PATIENT IN BED AT THIS TIME. TEST DESIGN ENGINEER CHARTED HOURLY ROUNDS. CALL LIGHT WITHIN REACH, NO FURTHER NEEDS.
[2024-12-29] MEDS ORDERED: POTASSIUM CHLORIDE 40 MEQ,LIDOCAINE HCL 1% 40 MG in DEXTROSE 5% 250 ML IV ONE (08:30)
--- NOTE | 2024-12-29 08:59 | NUR ---
PATIENT IS LYING IN BED WITH HOB ELEVATED. PATIENT WITH EYES OPEN AND RESPIRATIONS ARE EVEN AND UNLABORED. NC IN PLACE. PATIENT STATED NO NEEDS AT THIS TIME. CALL LIGHT AND PERSONAL BELONGINGS ARE WITHIN REACH.
--- NOTE | 2024-12-29 09:15 | NUR ---
DISCUSSED DC PLAN TO [facility] TOMORROW. SPOUSE WILL PICK HER UP AROUND 1300 TOMORROW TO TRANSPORT HER TO [facility] FOR SNF.
--- NOTE | 2024-12-29 09:17 | NUR ---
PATIENT IS LYING IN BED WITH HOB ELEVATED. NC IN PLACE. PATIENT WITH EYES OPEN AND RESPIRATIONS ARE EVEN AND UNLABORED. ANGELA MAYNARD IS IN THE ROOM. CALL LIGHT AND PERSONAL BELONGINGS ARE WITHIN REACH.
--- NOTE | 2024-12-29 09:19 | NUR ---
PATIENT IN BED AT THIS TIME. SAND BOBBER CHARTED VITALS AND I&O'S. CALL LIGHT WITHIN REACH, NO FRUTHER NEEDS.
--- NOTE | 2024-12-29 09:37 | NUR ---
YESTERDAY BEFORE PATIENT TRANSFERRED OVER TO MED SURG. SHE GOT A BED BATH AND SHAMPOO CAP. ALSO A CLEAN GOWN AND SOCKS.
--- NOTE | 2024-12-29 11:00 | NUR ---
PER DR MALDONADO, IV POTASSIUM TO BE D/C'D AND ORAL POTASSIUM TO BE ORDERED. NO OTHER ORDERS AT THIS TIME.
--- NOTE | 2024-12-29 11:06 | NUR ---
PATIENT IS SITTING IN THE CHAIR WITH BILATERAL LOWER EXTREMITIES ELEVATED. PATIENT WITH EYES OPEN AND RESPIRATIONS ARE EVEN AND UNLABORED. NC IN PLACE. BP TAKEN AND IN THE ROOM. MD STATED TO GIVE MORNING METOPROLOL DOSE AND THAT HE WILL PUT IN PO POTASSIUM ORDERS. PATIENT STATED NO FURTHER NEEDS AT THIS TIME. CALL LIGHT AND PERSONAL BELONGINGS ARE WITHIN REACH.
--- NOTE | 2024-12-29 11:20 | NUR ---
PT SITTING UP IN CHAIR AT THIS TIME. RR EVEN AND UNLABORED. CALL LIGHT AND PERSONAL BELONGINGS ARE WITHIN REACH.
[2024-12-29] MEDS ORDERED: POTASSIUM CHLORIDE 10 MEQ TABCR PO ONE (11:45)
--- NOTE | 2024-12-29 11:49 | NUR ---
PATIENT IN BED CHAIR AT THIS TIME. THIS INVENTORY TAKER CHANGED PATIENTS LINENS. CALL LIGHT WITHIN REACH, NO FURTHER NEEDS.
--- NOTE | 2024-12-29 12:52 | NUR ---
ORDERS FAXED TO VINICIUS AT [facility], ALONG WITH JACKY
--- NOTE | 2024-12-29 13:55 | NUR ---
PT REPORTING SEVERE HEARTBURN, REQUESTING MEDICATION. THIS RN NOTIFIED DR. KUMAR. DR KUMAR TO PUT IN ORDERS.
[2024-12-29] MEDS ORDERED: LIDOCAINE & ANTACID 35 ML BTL PO ONE (14:00)
--- NOTE | 2024-12-29 14:13 | NUR ---
PATIENT IN BED AT THIS TIME. CASINO FLOOR WALKER CHARTED VITALS AND I&O'S. PATIENT DECLINED SHOWER OR BED BATH AT THIS TIME. CALL LIGHT WITHIN REACH, NO FURTHER NEEDS.
--- NOTE | 2024-12-29 14:27 | NUR ---
PATIENT IS SITTING ON THE EDGE OF BED AND WORKING WITH OCCUPATIONAL THERAPY AT THIS TIME.
[2024-12-29] MEDS ORDERED: METOPROLOL TARTRATE 5 MG/5 ML VIAL IV PRN (15:45)
--- NOTE | 2024-12-29 16:38 | NUR ---
PT IN BED WITH HEAD ELEVATED, WATCHING TV. PT DENIES ANY NEEDS AT THIS TIME. CALL LIGHT AND PERSONAL BELONGINGS WITHIN REACH.
[2024-12-29] MEDS ORDERED: METOPROLOL TARTRATE 5 MG/5 ML VIAL IV ONE (16:45)
--- NOTE | 2024-12-29 16:45 | NUR ---
PLACED CALL TO DR. KUMAR REGARDING PT'S CONTINUOUSLY ELEVATED HR. DR. KUMAR GAVE ORDERS TO ADMINISTER "ONE MORE 5 MG DOSE OF METOPROLOL." STATED HE PUT IN ORDERS. CALL ENDED.
--- NOTE | 2024-12-29 17:40 | NUR ---
ASSISTED PT TO BSC WITH ANGELA HOLCOMB; NC ADJUSTED TO 5LNC. PT VOIDED 500 CC. PT ASSISTED BACK TO BED AND SAT IN TRIPOD POSITION FOR AROUND 2 MINUTES BEFORE SETTLING BACK INTO PILLOWS. PT STATES SHE WAS FEELING "A LITTLE SHORT OF BREATH" BUT "NOTHING LIKE IT WAS". PT STATES NO FURTHER NEEDS AT THIS TIME. O2 SATTING 95%, NOW BACK ON 4LNC. CALL LIGHT AND PERSONAL BELONGINGS ARE WITHIN REACH.
--- NOTE | 2024-12-29 18:20 | NUR ---
PT LAYING IN BED WITH EYES CLOSED. RR EVEN AND UNLABORED. CALL LIGHT AND PERSONAL BELONGINGS ARE WITHIN REACH. NASAL CANNULA AND CPOX ARE IN PLACE.
--- NOTE | 2024-12-29 18:27 | NUR ---
PATIENT IN BED AT THIS TIME. CARPET INSTALLER HELPER CHARTED VITALS AND I&O'S. CALL LIGHT WITHIN REACH, NO FURTHER NEEDS.
--- NOTE | 2024-12-29 19:05 | NUR ---
REPORT RECEIVED FROM KEEGAN MCFARLANE. pt RESTING IN THE BED. BOARD UPDATED. pt DENIES ANY OTHER NEEDS AT THIS TIME. CALL LIGHT WITHIN REACH.
[2024-12-29] MEDS ORDERED: LACTATED RINGER'S 1,000 ML IV SCH (20:00)
--- NOTE | 2024-12-29 20:15 | NUR ---
ASSESSMENT AND VITAL SIGNS DONE. pt SATTING AT 97% ON 4LNC. pt LUNG SOUNDS CLEAR. NO EDEMA NOTED IN pt BILAT LE. pt LEFT ARM HAS 1+ PITTING EDEMA. pt DENIES ANY OTHER NEEDS AT THIS TIME. CALL LIGHT WITHIN REACH.
[2024-12-29] MEDS ORDERED: METOPROLOL SUCCINATE 100 MG TABCR PO ONE (21:00)
--- NOTE | 2024-12-29 22:50 | NUR ---
pt CALLED AND STATED HER IV WAS LEAKING. THIS RN ASSESSED IV AND pt IV WAS LEAKING. IV DC'D. THIS RN STARTED NEW IV IN pt RIGHT FOREARM. pt GOT TO UP TO THE BSC. O2 INCRESED TO 6LNC. pt BACK TO BED. pt O2 BACK DOWN TO 4LNC WHEN pt BACK IN THE BED. pt HAD INCREASED WORK OF BREATHING WHILE OUT OF BED. pt DENIES ANY OTHER NEEDS AT THIS TIME. CALL LIGHT WITHIN REACH.
[2024-12-30] VITALS (7 sets, daily range): BP systolic 98–122; BP diastolic 52–64
--- NOTE | 2024-12-30 00:23 | NUR ---
pt RESTING IN THE BED WITH EYES CLOSED. RR EVEN AND UNLABORED. 4LNC ON. CPOX ON. pt SATTING AT 95%. NO NEEDS AT THIS TIME. CALL LIGHT WITHIN REACH.
--- NOTE | 2024-12-30 01:50 | NUR ---
IN RM TO DO pt VITAL SIGNS. pt RESTING IN THE BED. pt DENIES ANY OTHER NEEDS AT THIS TIME. CALL LIGHT WITHIN REACH.
--- NOTE | 2024-12-30 04:37 | NUR ---
pt RESTING IN THE BED WITH EYES CLOSED. RR EVEN AND UNLABORED. CALL LIGHT WITHIN REACH.
[2024-12-30 05:13] LABS: MCH 30.0 PG (25.6-32.2); MCHC 31.9 g/dL (32.2-35.5); MCV 94.1 fL (79.4-94.8); RBC 3.53 M/uL (3.93-5.22)
[2024-12-30 05:23] LABS: GLOMERULAR FILTRATION RATE,EST 80.0 mL/min (>60); UREA NITROGEN 14.0 mg/dL (7-18)
[2024-12-30 05:25] LABS: EOSINOPHILS, MANUAL DIFF 7; LYMPHOCYTES, MANUAL DIFF 35; MONOCYTES, MANUAL DIFF 4; NEUTROPHILS, MANUAL DIFF 54
--- NOTE | 2024-12-30 05:26 | NUR ---
CALL LIGHT ANSWERED. PT NEEDED TO USE BATHROOM. BOOK SOLICITOR 1PA TO BSC. PT VOIDED AND HAD BM. PT ASSISTED BACK TO BED. VITALS AND I&O OBTAINED. PT STATES NO FURTHER NEEDS AT THIS TIME. CALL LIGHT WITHIN REACH.
--- NOTE | 2024-12-30 07:10 | NUR ---
RECIEVED REPORT FROM DENYS SHAFFER. PT IS RESTING IN BED WITH EYES CLOSED. NASAL CANNULA IS SECURELY ON FACE AND CPOX IS AT BEDSIDE. CALL LIGHT AND PERSONAL BELONGINGS ARE WITHIN REACH.
--- NOTE | 2024-12-30 08:09 | NUR ---
PATIENT IN BED AT THIS TIME. VACUUM CLEANER REPAIR PERSON CHARTED HOURLY ROUNDS. CALL LIGHT WITHIN REACH, NO FURTHER NEEDS.
--- NOTE | 2024-12-30 09:17 | NUR ---
DISCUSSED TO RYAN DE LA TORRE TODAY. INSTRUCTED TO HAVE HER SPOUSE BRING HER HOME TANKS TO USE DURING TRANSPORT. QUESTIONS ANSWERED.
--- NOTE | 2024-12-30 09:45 | NUR ---
PT SITTING UP IN CHAIR, WATCHING TV. RR EVEN AND UNLABORED. CALL LIGHT AND PERSONAL BELONGINGS ARE WITHIN REACH.
--- NOTE | 2024-12-30 09:56 | NUR ---
PATIENT IN CHAIR AT THIS TIME. SENIOR ATTORNEY CHARTED VITALS AND I&O'S. SENIOR ATTORNEY ASSISTED PATIENT FROM BED TO BEDSIDE COMMODE AND THEN TO CHAIR. CALL LIGHT WITHIN REACH, NO FURTHER NEEDS.
--- NOTE | 2024-12-30 10:48 | NUR ---
PT SITTING UP IN CHAIR WATCHING TV. PT REPORTED THAT SHE FELT LIKE SHE WAS UNABLE TO TAKE "FULL, DEEP BREATHS." PROVIDED PT WITH INCENTIVE SPIROMETER AND EDUCATED PT ON HOW TO USE IT. PT WAS ABLE TO DEMONSTRATE USAGE AND VERBALIZED UNDERSTANDING. PT DENIES ANY OTHER NEEDS AT THIS TIME. CALL LIGHT AND PERSONAL BELONGINGS ARE WITHIN REACH.
--- NOTE | 2024-12-30 11:27 | NUR ---
PATIENT IN BED AT THIS TIME. SUPERVISOR ORE DRESSING CHARTED HOURLY ROUNDS. CALL LIGHT WITHIN REACH, NO FURTHER NEEDS.
[2024-12-30] MEDS ORDERED: ELIQUIS5 MG PO (11:33)
[2024-12-30] MEDS ORDERED: METOPROLOL SUC100 MG PO (11:34)
--- NOTE | 2024-12-30 11:40 | NUR ---
PT RESTING IN CHAIR WITH EYES CLOSED. RR EVEN AND UNLABORED. CALL LIGHT AND PERSONAL BELONGINGS WITHIN REACH.
--- NOTE | 2024-12-30 12:08 | NUR ---
PT IN CHAIR WITH LUNCH TRAY. PT STATES SHE IS NOT HUNGRY AT THIS TIME, BUT MAY CONSIDER TRYING HER LUNCH A LITTLE LATER. UPDATED PT THAT SHE IS STILL SCHEDULED TO LEAVE FOR FACILITY AT 1300. PT STATES NO FURTHER NEEDS. CALL LIGHT AND PERSONAL BELONGINGS WITHIN REACH.
== END 2024-12-30 13:12 | DRG 871 ==
LOC: ED 06:42 → CCU 12:20 → MS 12-28 16:00
PROVIDERS: Family Medicine; Internal Medicine; ADMIT Student in an Organized Health Care Education/Training Program; ATTEND Student in an Organized Health Care Education/Training Program
PROC: 3E03329 Introduction of Other Anti-infective into Peripheral Vein, Percutaneous Approach (ICD-10-PCS; 2024-12-21)
PROC: 5A09357 Assistance with Respiratory Ventilation, Less than 24 Consecutive Hours, Continuous Positive Airway Pressure (ICD-10-PCS; principal; 2024-12-24)
DX: A41.9 Sepsis, unspecified organism (principal); J18.9 Pneumonia, unspecified organism; J96.21 Acute and chronic respiratory failure with hypoxia; J44.1 Chronic obstructive pulmonary disease with (acute) exacerbation; J44.0 Chronic obstructive pulmonary disease with (acute) lower respiratory infection; E87.20 Acidosis, unspecified; R65.20 Severe sepsis without septic shock; Z99.81 Dependence on supplemental oxygen; I25.10 Atherosclerotic heart disease of native coronary artery without angina pectoris; I11.0 Hypertensive heart disease with heart failure; I50.9 Heart failure, unspecified; R91.1 Solitary pulmonary nodule; F17.210 Nicotine dependence, cigarettes, uncomplicated; E87.6 Hypokalemia; E83.42 Hypomagnesemia; R07.89 Other chest pain; R53.1 Weakness; I48.0 Paroxysmal atrial fibrillation; Z90.49 Acquired absence of other specified parts of digestive tract; Z90.710 Acquired absence of both cervix and uterus; Z95.1 Presence of aortocoronary bypass graft; Z98.890 Other specified postprocedural states; Z91.013 Allergy to seafood; Z88.1 Allergy status to other antibiotic agents; Z79.890 Hormone replacement therapy; Z79.82 Long term (current) use of aspirin; Z79.51 Long term (current) use of inhaled steroids; Z87.01 Personal history of pneumonia (recurrent)
CPT/HCPCS: 36415; 71045; 71260; 80048; 80053; 82803; 83605; 83735; 83880; 84484; 85025; 85060; 85379; 87040; 87077; 87186; 93005; 93010; 93306; 94640; 94644; 94660; 94667; 94668; 94762; 94799; 96365; 96367; 96375; 97116; 97162; 97166; 97530; 97535; 99285-25; A9270; J0282; J0456; J0696; J1650; J2060; J2919; J3475; J3480; J3490; J7030; J7060; J7121; J7512; J7605; Q9967